=== PATIENT | male | born 1970 | race African-American/Black ===

== ENCOUNTER 2019-11-30 08:02 | Day surgery (SDC) | payer OTHER ==
--- OUTSIDE RECORDS SUMMARY | 2019-11-30 08:24 | XMS REPORT | Continuity of Care Document ---
:1970 Author Organization [facility] t Address [address] [place] [address] Care Team Providers Name Role Phone Unavailable Unavailable Unavailable Payers Payer Name Policy Type Policy Number Effective Date Expiration Date S ource Problems Condition Condition Condition Status Onset Resolution Last Treating Co mments Source Name Details Category Date Date Treatment Clinician Date Central Central Disease Active [facility] cord cord 8-03 [facility] Allergies, Adverse Reactions, Alerts Allergy Allergy Status Severity Reaction(s) Onset Inactive Treating Comm ents Source Name Type Date Date Clinician No Known DA Active [facility] 06[facility]02 [place] [facility] 00:00: [address] Family History Family Member Diagnosis Comments Start Date Stop Date Source Natural father Heart disease [facility] Natural mother Diabetes [facility] Natural mother Hypertension [facility] Natural sister Heart disease [facility] Social History Social Habit Start Date Stop Date Quantity Comments Source Sex Assigned At [facility] Cigarettes smoked 2015-10-15 2015-10-15 [facility] - current (pack per 00:00:00 00:00:00 [facility] Center day) - Reported Alcohol intake 2015-10-15 2015-10-[address] [facility] - 00:[facility]:00 00:00:00 non-drinker of Medical Ce nter alcohol (finding) Tobacco Comment 2015-09-18 2015-09-18 [facility]00 he is not ready Medical C enter to quit smoking. Smoking Status Start Date Stop Date Source Current every day smoker 2015-10-15 00:00:[address] [facility] Medications Ordered Filled Start Stop Current Ordering Indication Dosage Frequency Signature Comments Components Source Medication Medication Date Date Medication? Clinician (SIG) Name Name insulin Yes type 2 45U Q.5D Inject [address] detemir 8-11 diabetes Units [facility] - (LEVEMIR) 14:31: mellitus subcutaneo Medical 100 unit/mL 08 usly 2 Center injection (two) times daily. insulin Yes type [address] lispro 8-11 diabetes subcutaneo [facility]ingo es - (HUMALOG) 14:31: mellitus usly 3 Me dical 100 unit/mL 08 (three) Cente r injection times daily before meals. ascorbic Yes 500mg QD Take [address] Acid 8-11 capsule [facility] - (VITAMIN C) 00:00: (500 mg Med ical 500 mg CpER 00 total) by Bill ter SR capsule mouth daily. pantoprazol Yes 40mg QD Take [address] e 8-11 tablet (40 [facility] - (PROTONIX) 00:00: mg total) Me dical 40 MG 00 by mouth Center tablet daily. enoxaparin Yes 40mg Q24H Inject 0.[address] (LOVENOX) 8-11 mLs (40 mg Luke s - 40 mg/0.4 00:00: total) Medica l mL Syrg 00 subcutaneo Center usly daily. Procedures This patient has no known procedures. Results Test Description Test Time Test Comments Results Result Comments Source GLUCOSE BEDSIDE TESTING 2018-06-24 09:18:00 Test Item Value Reference Range Interpretation Comme nts GLUCOSE BEDSIDE TESTING (test code = GLUBED) 171 MG/DL 60-99 H GLUCOSE BEDSIDE [id number] 15:01:00 Test Item Value Reference Range Interpretation Comments GLUCOSE BEDSIDE TESTING (test code 170 MG/DL 60-99 H = GLUBED) GLUCOSE BEDSIDE [id number] 13:38:00 Test Item Value Reference Range Interpretation Comments GLUCOSE BEDSIDE TESTING (test code 185 MG/DL 60-99 H = GLUBED)
--- OUTSIDE RECORDS SUMMARY | 2019-11-30 08:24 | XMS REPORT | Clinical Summary ---
:[address] [facility] Address [address] [place] [address] Care Team Providers Name Role Phone Unavailable Primary Care Provider Unavailable Allergies No Known Allergies Medications Medication Sig Dispensed Refills Start Date End Date Status insulin detemir Inject 45 Units 0 Active (LEVEMIR) 100 subcutaneously 2 unit/mL (two) times daily. injectionIndication s: type 2 diabetes mellitus insulin lispro Inject 0 Activ e (HUMALOG) 100 subcutaneously 3 unit/mL (three) times daily injectionIndication before meals. s: type 2 diabetes mellitus ascorbic Acid Take 1 capsule (500 30 capsule 0 09/27/2015 Active (VITAMIN C) 500 mg mg total) by mouth CpER SR capsule daily. pantoprazole Take 1 tablet (40 mg 30 tablet 0 09/27/2015 Active (PROTONIX) 40 MG total) by mouth tablet daily. enoxaparin Inject 0.4 mLs (40 30 Syringe 0 09/27/2015 Active (LOVENOX) 40 mg/0.4 mg total) mL Syrg subcutaneously daily. Active Problems Problem Noted Date Central cord syndrome 09/19/2015 Family History Medical History Relation Name Comments Heart disease Father Diabetes Mother Hypertension Mother Heart disease Sister Relation Name Status Comments Father Mother Sister Social History Tobacco Use Types Packs/Day Years Used Date Current Every Day Smoker 1 Tobacco Cessation: Ready to Quit: No; Co unseling Given: Yes Comments: pt states that he is not ready to quit smoking. 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 Device Shelf Model / Identifier Expiration Serial / Date Lot Matrix Floseal Hemo W/O Ndl 10 [id number] - [id number] Cement/Fi N/A: Spine PAUL:BIOSCI 01/15/2017 [id number] / Implanted: Qty: 1 on 09/20/2015 by Alejandro Marx MD at [facility] ller/Adhe Cervical / sive [id number] Set Scr [id number] - [id number] Spine N/A: Spine MEDTRONIC:SPINA [id number] / Implanted: Qty: 8 on 09/20/2015 by Alejandro Marx MD at [facility] Cervical L BIOLOGICS / Scr Vertex 14mm [id number] - [id number] Spine N/A: Spine MEDTRONIC:SPI NA [id number] / Implanted: Qty: 8 on 09/20/2015 by Alejandro Marx MD at [facility] Cervical L BIOLOGICS / [place] Plus Dbm Paste N/A: Spine MEDTRONIC 2016 [id number] / Implanted: Qty: 1 on 09/20/2015 by Alejandro Marx MD at [facility] Cervical A24 [id number] / Description:[id number] Tyrrell Dbm Orthoblend N/A: Spine Cervical MEDTRONIC 03/25/2016 [id number] / Implanted: Qty: 1 on 09/20/2015 by Alejandro Marx MD at [facility] A27 [id number] / Description:[id number] Hector N/A: Spine Cervical MEDTRONIC [id number] / Implanted: Qty: 2 on 09/20/2015 by Alejandro Marx MD at [facility] / Results Not on fileafter 11/29/2018 Advance Directives For more information, please contact: [phone] Code Status Date Activated Date Inactivated Comments Full Code 09/19/2015 12:32 AM 09/27/2015 4:31 PM This code status was determined by: Patient
[2019-11-30] MEDS ORDERED: NA CHLORIDE 0.9% 1,000 ML ONE (08:44)
[2019-11-30] MEDS: CEFAZOLIN/SWI 1gm 1 GM/10 ML SYR ONE ×3 (09:03→09:55)
[2019-11-30] MEDS: BUPIVACA 0.25%/EPI 0.0005%/PF 30 ML VIAL ONE ×2 (09:24→10:00)
[2019-11-30] MEDS ORDERED: MIDAZOLAM HCL 2 MG/2 ML INJ ONE (09:34)
[2019-11-30] MEDS ORDERED: propofoL 200 MG/20 ML VIAL IV ONE (09:34)
[2019-11-30] MEDS ORDERED: FENTANYL CITR 100 MCG/2 ML ONE (09:34)
[2019-11-30] MEDS ORDERED: dexAMETHasone 10 MG/ML VIAL ONE (09:34)
[2019-11-30] MEDS ORDERED: LIDOCAINE 2% MPF 5 ML VIAL ONE (09:35)
--- NOTE | 2019-11-30 10:26 | P.OP ---
Preoperative diagnosis: Upper middle back infected sebacous cyst with abscess Postoperative diagnosis: Upper middle back infected sebacous cyst with abscess Primary procedure: Wide Local Excision of Upper Middle Back Cyst Anesthesia: GETA + Local Estimated blood loss: <5cc Specimen: Culture + debridement tissue Findings: Infected sebaceous cyst 10x 12 x 4 cm down to fascia Complications: None Transferred to: Recovery Room Condition: Good
[2019-11-30 10:55] VITALS: O2SAT 100
--- NOTE | 2019-11-30 11:04 | OP ---
Date of Procedure: 11/30/2019 Surgeon: Kasi Nguyen MD, Preoperative Diagnosis: Upper middle back infected sebaceous cyst with abscess. Postoperative Diagnosis: Upper middle back infected sebaceous cyst with abscess. Procedure Performed: Wide local excision of above upper middle back infected sebaceous cyst with abs cess. Anesthesia: General endotracheal plus local with 0.25% Marcaine with epinephrine. Estimated Blood Loss: Less 5 mL. Specimen: Cultures and debridement tissue sent. Findings: Infected sebaceous cyst approximately 10 x 12 x 4 cm down to fascia. Complications: None. Disposition: The patient transferred to recovery room in good condition. Procedure In Detail: After informed consent was obtained, the patient was brought to the operating r oom, prepped and draped in the usual sterile fashion. After adequate anesthesia was achieved, an ell iptical incision was made down through subcutaneous tissues using a 15 blade. Electrocautery was use d to dissect down circumferentially approximately 10 x 12 cm down to fascia to remove an infected kenneth aceous cyst with abscess. Cultures were performed at this time and the debridement tissue was sent o ff for pathologic examination. Hemostasis was achieved with electrocautery. The area was copiously irrigated multiple times and dried. No additional hemostatic maneuvers required and a sterile dressi ng was packed in, damp to dry into the back wound, and a sterile dressing was placed over top. The p atient tolerated the procedure well without any evidence of complication and transferred to PACU in g ood condition. All counts were correct at the end of the case. ANGLE/RADHA Voice ID: [id number] Report ID: [id number]
[2019-11-30] MEDS: MORPHINE 4 MG/ML SYR ONE ×2 (11:30→11:35)
[2019-11-30] MEDS ORDERED: ONDANSETRON 4 MG/2 ML VIAL ONE (11:44)
[2019-11-30] MEDS ORDERED: INSULIN -REGULAR HUMAN 50 UNIT/0.5 ML ML ONE (11:44)
[2019-11-30] MEDS ORDERED: CODEINE 30MG/APAP 300MG TAB ONE (12:38)
[2019-11-30 16:37] VITALS: BP 125/86; TEMP 97
== END 2019-11-30 12:37 | disposition home or self-care (01) ==
LOC: OR 08:02
PROVIDERS: ATTEND Surgery
PROC: 0JB70ZZ Excision of Back Subcutaneous Tissue and Fascia, Open Approach (ICD-10-PCS; principal; 2019-11-30 09:30)
DX: L72.0 Epidermal cyst (principal); L08.9 Local infection of the skin and subcutaneous tissue, unspecified; Z20.828 Contact with and (suspected) exposure to other viral communicable diseases
CPT/HCPCS: 87070; 87205; 82947 ×3; 88304; 87075; 11406; U0002; J2704; J2250; J3010; J1100; J0690; J7030; J2405; 88305

== ENCOUNTER 2020-03-22 10:01 | Day surgery (SDC) | payer OTHER ==
--- OUTSIDE RECORDS SUMMARY | 2020-03-22 10:28 | XMS REPORT | Clinical Summary ---
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 Device Shelf Model / Identifier Expiration Serial / Date Lot Matrix Floseal Hemo W/O Ndl 10 [id number] - [id number] Cement/Fi N/A: Spine PAUL:BIOSCI 01/15/2017 [id number] / Implanted: Qty: 1 on 09/20/2015 by Alejandro Marx MD at [facility] ller/Adhe Cervical / sive [id number] Set Scr [id number] [id number] - [id number] Spine N/A: Spine MEDTRONIC:SPINA [id number] / Implanted: Qty: 8 on 09/20/2015 by Alejandro Marx MD at [facility] Cervical L BIOLOGICS / Scr Vertex 14mm [id number] - [id number] Spine N/A: Spine MEDTRONIC:SPI NA [id number] / Implanted: Qty: 8 on 09/20/2015 by Alejandro Marx MD at [facility] Cervical L BIOLOGICS / [place] Plus Dbm Paste N/A: Spine MEDTRONIC 2016 [id number] / Implanted: Qty: 1 on 09/20/2015 by Alejandro Marx MD at [facility] Cervical A24 [id number] / Description:[id number] [place] Dbm Orthoblend N/A: Spine Cervical MEDTRONIC 03/25/2016 [id number] / Implanted: Qty: 1 on 09/20/2015 by Alejandro Marx MD at [facility] A27 [id number] / Description:[id number] Hector N/A: Spine Cervical MEDTRONIC [id number] / Implanted: Qty: 2 on 09/20/2015 by Alejandro Marx MD at [facility] / Results Not on fileafter 03/22/2019 Advance Directives For more information, please contact: [phone] Code Status Date Activated Date Inactivated Comments Full Code 09/19/2015 12:32 AM 09/27/2015 4:31 PM This code status was determined by: Patient
--- OUTSIDE RECORDS SUMMARY | 2020-03-22 10:28 | XMS REPORT | Continuity of Care Document ---
:1970 Author Organization [facility] t Address [address] [place] [address] Care Team Providers Name Role Phone Unavailable Unavailable Unavailable Payers Payer Name Policy Type Policy Number Effective Date Expiration Date S ource Problems Condition Condition Condition Status Onset Resolution Last Treating Co mments Source Name Details Category Date Date Treatment Clinician Date Central Central Disease Active [facility] cord cord 8-03 [facility] - syndrome [facility] Allergies, Adverse Reactions, Alerts Allergy Allergy Status Severity Reaction(s) Onset Inactive Treating Comm ents Source Name Type Date Date Clinician No Known DA Active [facility] All[facility]ie 06-02 [facility] 00:00: [address] Family History Family Member Diagnosis Comments Start Date Stop Date Source Natural father Heart disease [facility] Natural mother Diabetes [facility] Natural mother Hypertension [facility] Natural sister Heart disease [facility] Social History Social Habit Start Date Stop Date Quantity Comments Source Sex Assigned At [facility] Cigarettes smoked 2015-10-15 2015-10-15 [facility] - current (pack per 00:00:00 00:00:00 Medical Center day) - Reported Alcohol intake 2015-10-15 2015-10-[address] [facility] - 00:[facility]:00 00:00:00 non-drinker of Medical Ce nter alcohol (finding) Tobacco Comment 2015-09-18 2015-09-18 pt states that [facility] - 00:[facility]:00:00 he is not ready Medical C enter to quit smoking. Smoking Status Start Date Stop Date Source Current every day smoker 2015-10-15 00:00:00 [facility] Medications Ordered Filled Start Stop Current [...] GLUBED) 171 MG/DL 60-99 H GLUCOSE BEDSIDE [id number] 15:01:00 Test Item Value Reference Range Interpretation Comments GLUCOSE BEDSIDE TESTING (test code 170 MG/DL 60-99 H = GLUBED) GLUCOSE BEDSIDE [id number] 13:38:00 Test Item Value Reference Range Interpretation Comments GLUCOSE BEDSIDE TESTING (test code 185 MG/DL 60-99 H = GLUBED)
[2020-03-22] MEDS ORDERED: NA CHLORIDE 0.9% 1,000 ML ONE (11:04)
[2020-03-22] MEDS ORDERED: CEFAZOLIN/SWI 1gm 1 GM/10 ML SYR ONE (11:05)
[2020-03-22] MEDS ORDERED: MIDAZOLAM HCL 2 MG/2 ML INJ ONE (11:47)
[2020-03-22] MEDS ORDERED: KETOROLAC 30 MG/ML INJ ONE (11:47)
[2020-03-22] MEDS ORDERED: FENTANYL CITR 100 MCG/2 ML ONE (11:47)
[2020-03-22] MEDS ORDERED: dexAMETHasone 10 MG/ML VIAL ONE (11:47)
[2020-03-22] MEDS ORDERED: propofoL 200 MG/20 ML VIAL IV ONE (11:47)
[2020-03-22] MEDS ORDERED: LIDOCAINE 2% MPF 5 ML VIAL ONE (11:48)
[2020-03-22] MEDS ORDERED: ONDANSETRON 4 MG/2 ML VIAL ONE ×2 (11:48→13:53)
[2020-03-22] MEDS ORDERED: BUPIVACA 0.25%/EPI 0.0005% MDV 50 ML VIAL ONE (12:11)
--- NOTE | 2020-03-22 13:11 | P.OP ---
Preoperative diagnosis: RIGHT upper back infected sebacous cyst Postoperative diagnosis: RIGHT upper back infected sebacous cyst Primary procedure: Wide local excision of RIGHT upper back infected sebacous cyst Anesthesia: GETA + Local Estimated blood loss: <20cc Specimen: cultures + debridement tissue Findings: 12cm x10cm down to muscle Complications: None Transferred to: Recovery Room Condition: Good
[2020-03-22] MEDS: HYDROMORPHONE HCL 1 MG/ML INJ ONE ×2 (13:40→13:45)
[2020-03-22] MEDS ORDERED: HYDROCODONE/APAP 10/325 TAB ONE (14:26)
--- NOTE | 2020-03-22 15:16 | OP ---
Date of Procedure: 03/22/2020 Surgeon: Pete Nguyen MD, Preoperative Diagnosis: Right upper back infected sebaceous cyst. Postoperative Diagnosis: Right upper back infected sebaceous cyst. Procedure: Wide local excision of right upper back infected sebaceous cyst with abscess. Anesthesia: General endotracheal plus local with 0.25% Marcaine without epinephrine. Estimated Blood Loss: Less than 20 mL. Specimen: Cultures plus debridement tissue. Findings: A 12 cm x 10 cm down to muscle large multiloculated infected epidermal inclusion cyst with abscess. Complications: None. Disposition: Transferred to recovery room in good condition. Procedure In Detail: After informed consent was obtained, the patient was brought to the operating r oom, prepped and draped in the usual sterile fashion. After adequate anesthesia, a curvilinear incis ion was made circumferentially around the area of the right upper back for approximately 5 cm in the subcutaneous tissues. I dissected this down using electrocautery circumferentially around an area of infected epidermal inclusion material. Abscess material was encountered at this point. This was se nt off for aerobic and anaerobic speciation. I then circumferentially removed the entire capsule in its entirety and extended for approximately 12 cm x 10 cm down to the muscular layer of the upper rica k. I then sent the debridement tissue off for pathologic examination. The area was copiously irriga pete and hemostasis was achieved with electrocautery, and the area was irrigated once again and dried. At this point, damp to dry dressings were packed in the wound and a sterile dressing was placed ove r top. The patient tolerated the procedure well without any evidence of complication and transferred to PACU in good condition. All counts were correct at the end of the case. ANGLE/RADHA Voice ID: [id number] Report ID: [id number]
[2020-03-22 16:24] VITALS: TEMP 97.9; O2SAT 95
[2020-03-22 16:25] VITALS: BP 142/64
== END 2020-03-22 15:30 | disposition home or self-care (01) ==
LOC: OR 10:01
PROVIDERS: ATTEND Surgery
PROC: 0JB70ZZ Excision of Back Subcutaneous Tissue and Fascia, Open Approach (ICD-10-PCS; principal; 2020-03-22 12:30)
DX: R22.2 Localized swelling, mass and lump, trunk (principal)
CPT/HCPCS: 87070; 87205; 82947; 88304; 87075; 87077; 87186; 11406; J2704; J2250; J3010; J1170; J0690; J7030; J2405 ×2; J1100

== ENCOUNTER 2020-08-10 12:20 | Emergency (ER) | payer OTHER ==
--- OUTSIDE RECORDS SUMMARY | 2020-08-10 12:22 | XMS REPORT | Continuity of Care Document ---
:1970 Author Organization [facility] t Address [address] [place] [address] Care Team Providers Name Role Phone Unavailable Unavailable Unavailable Payers Payer Name Policy Type Policy Number Effective Date Expiration Date S ource Problems Condition Condition Condition Status Onset Resolution Last Treating Co mments Source Name Details Category Date Date Treatment Clinician Date Central Central Disease Active [facility] cord cord 8-03 [facility] - syndrome syndrome [facility] Allergies, Adverse Reactions, Alerts Allergy Allergy Status Severity Reaction(s) Onset Inactive Treating Comm ents Source Name Type Date Date Clinician No Known DA Active U [facility] All[facility]ie 06-02 [facility] 00:00: [address] Family History Family Member Diagnosis Comments Start Date Stop Date Source Natural father Heart disease [facility] Natural mother Diabetes [facility] Natural mother Hypertension [facility] Natural sister Heart disease [facility] Social History Social Habit Start Date Stop Date Quantity Comments Source Sex Assigned At [facility] Cigarettes smoked 2015-10-15 2015-10-15 [facility] - current (pack per 00:00:00 00:00:00 [...] Source Current every day smoker 2015-10-15 00:00:[address] [facility] Medications Ordered [...] GLUBED) 171 MG/DL 60-99 H GLUCOSE BEDSIDE [id number] 15:01:00 Test Item Value Reference Range Interpretation Comments GLUCOSE BEDSIDE TESTING (test code 170 MG/DL 60-99 H = GLUBED) GLUCOSE BEDSIDE [id number] 13:38:00 Test Item Value Reference Range Interpretation Comments GLUCOSE BEDSIDE TESTING (test code 185 MG/DL 60-99 H = GLUBED)
[2020-08-10 14:37] LABS: Absolute Lymphocytes (CBC) 2.2 K/uL (0.7-4.9); Basophils % 1.3 % (0-1.3); Hematocrit 46.2 % (39.6-49.0); Lymphocytes % 34.6 % (15.3-44.8); MPV 9.5 fL (7.6-11.3); RBC Red Blood Cell Count 5.08 M/uL (4.33-5.43)
[2020-08-10 15:14] LABS: ALT/SGPT 15 U/L (12-78); AST/SGOT 9 U/L (15-37); Albumin 2.7 g/dL (3.4-5.0); Alkaline Phosphatase 144 U/L (45-117); BUN Blood Urea Nitrogen 9 mg/dL (7-18); Bicarbonate 31 mmol/L (21-32); Bilirubin Total 0.4 mg/dL (0.2-1.0); Glucose Level 361 mg/dL (74-106); Potassium 3.8 mmol/L (3.5-5.1); Protein, Total 6.6 g/dL (6.4-8.2); Sodium Level 139 mmol/L (136-145)
--- NOTE | 2020-08-10 16:03 | RAD REPORT ---
EXAM DESCRIPTION: RAD - Foot Left 3 View - 08/10/2020 2:55 pm CLINICAL HISTORY: SWELLING Pain and swelling left foot. COMPARISON: No comparisons FINDINGS: Soft tissue ulceration is seen along the plantar aspect of the forefoot medially. No fract ure or dislocation seen. No radiographic evidence of osteomyelitis. If osteomyelitis remains a clinic al concern, MRI of the foot would be recommended for followup.
--- NOTE | 2020-08-10 16:40 | EDPHYS ---
Physician Documentation [facility] Name: Jonnie De La Rosa Age: 50 yrs Sex: Male : 1970 Arrival Date: 08/10/2020 Time: 12:33 Bed 20 Private MD: Yomi Garcia E ED Physician Andry Silva HPI: 08/10 14:06 This 50 yrs old Black Male presents to ER via Wheelchair with complaints of Foot Pain - jmm swelling/infection. 14:06 The patient presents with swelling. The complaints affect the. Onset: The jmm symptoms/episode began/occurred at an unknown time. Modifying factors: The symptoms are alleviated by nothing. the symptoms are aggravated by nothing. Associated signs and symptoms: Pertinent positives: swelling, draining. The patient has not experienced similar symptoms in the past. This is a 50 year old male with a history of htn, dm, that presents to the ED with complaints of left plantar foot swelling, drainage. Sent from clinic for evaluation. Denies fever, pain. . Historical: - Home Meds: 13:05 levemir 40 units BID 40 40 unit twice a day [Active]; atorvastatin 20 mg oral tab 1 tab kg once daily [Active]; metoprolol tartrate 37.5 mg Oral tab 1 tab once daily [Active]; gabapentin 800 mg oral tab 1 tab 4 times a day [Active]; amitriptyline Oral once daily [Active]; - PMHx: 13:05 neuropathy; Hypertension; Diabetes - IDDM; back sx, fx vertebre; kg - PSHx: 13:05 Cervical back sx 3,4,\T\5; kg - Immunization history:: Adult Immunizations up to date, Client reports having NOT received the Covid vaccine. - Social history:: Smoking status: Patient reports the use of cigarette tobacco products, smokes one pack cigarettes per day. ROS: 14:06 Constitutional: Negative for fever, chills, and weight loss, Cardiovascular: Negative jmm for chest pain, palpitations, and edema, Respiratory: Negative for shortness of breath, cough, wheezing, and pleuritic chest pain. 14:06 MS/extremity: Positive for swelling. 14:06 All other systems are negative. Exam: 14:06 Constitutional: This is a well developed, well nourished patient who is awake, alert, jmm and in no acute distress. Head/Face: atraumatic. Eyes: EOMI, no conjunctival erythema appreciated ENT: Moist Mucus Membranes Neck: Trachea midline, Supple Chest/axilla: Normal chest wall appearance and motion. Cardiovascular: Regular rate and rhythm. No edema appreciated Respiratory: Normal respirations, no respiratory distress appreciated Abdomen/GI: Non distended, soft Back: Normal ROM 14:06 Skin: ulcer noted to the ball of the left foot, no purulent drainage appreciated, mild erythema surrounding the wound. 14:06 Neuro: Orientation: is normal, Mentation: is normal, Memory: is normal. 14:06 Psych: Behavior/mood is pleasant, cooperative. Vital Signs: 12:50 BP 139 / 75; Pulse 87; Resp 20; Temp 98.6(O); Pulse Ox 98% on R/A; Weight 86.18 kg (R); kg Height 6 ft. 0 in. (182.88 cm) (R); Pain 9/10; 15:56 BP 137 / 92; Pulse 76; Resp 16; Pulse Ox 97% on R/A; zb 12:50 Body Mass Index 25.77 (86.18 kg, 182.88 cm) kg MDM: 13:55 Patient medically screened. dedra 16:29 Data reviewed: vital signs, nurses notes. Counseling: I had a detailed discussion with evan the patient and/or guardian regarding: the historical points, exam findings, and any diagnostic results supporting the discharge/admit diagnosis, lab results, radiology results, the need for outpatient follow up, to return to the emergency department if symptoms worsen or persist or if there are any questions or concerns that arise at home. ED course: Imaging studies labs, wnl. Patient advised to follow up with podiatry for further evaluation. patient is otherwise given strict return precautions. Patient understood and agrees with the plan of care. . 08/10 14: Order name: CBC with Diff; Complete Time: 14:49 [facility] 08/10 14: Order name: CMP; Complete Time: 15:30 [facility] 08/10 14:06 Order name: Foot Left 3 View XRAY; Complete Time: 16:04 [facility] 08/10 14:06 Order name: Procalcitonin; Complete Time: 15:30 [facility] 08/10 14:06 Order name: Lactate; Complete Time: 15:04 [facility] 08/10 14:06 Order name: Blood Culture Adult (2) [facility] 08/10 14:06 Order name: Saline Lock; Complete Time: 14:28 [facility] 08/10 16:18 Order name: Wound Care; Complete Time: 17:02 [facility] Administered Medications: No medications were administered Disposition: 08/10/20 16:40 Discharged to Home. Impression: Left Foot Ulcer. - Condition is Stable. - Discharge Instructions: Diabetes and Foot Care. - Prescriptions for Doxycycline Hyclate 100 mg Oral Tablet - take 1 tablet by ORAL route every 12 hours; 20 tablet. Bactrim DS 800- 160 mg Oral Tablet - take 1 tablet by ORAL route every 12 hours for 10 days; 20 tablet. - Medication Reconciliation Form, Thank You Letter, Antibiotic Education, Prescription Opioid Use form. - Follow up: Luis Fernando Gamboa DPM; When: 1 - 2 days; Reason: Recheck today's complaints, Continuance of care, Re-evaluation by your physician. Addendum: 08/11/2020 21:09 Co-signature as Attending Physician, Andry Silva MD I agree with the assessment and c hill plan of care. Signatures: Dispatcher [employer] EDAndry Ortiz MD MD cha Mickail, Joel, PA PA jmm Brown, Zipporah RN RN Maru Carver, BRY RN kg Corrections: (The following items were deleted from the chart) 08/10 17:03 16:40 08/10/2020 16:40 Discharged to Home. Impression: Left Foot Ulcer. Condition is zb Stable. Forms are Medication Reconciliation Form, Thank You Letter, Antibiotic Education, Prescription Opioid Use. Follow up: Dr. Luis Fernando Gmaboa; When: 1 - 2 days; Reason: Recheck today's complaints, Continuance of care, Re-evaluation by your physician. [facility]
--- NOTE | 2020-08-10 16:40 | ER ---
Nurse's Notes [facility] Name: Jonnie De La Rosa Age: 50 yrs Sex: Male : 1970 Arrival Date: 08/10/2020 Time: 12:33 Bed 20 Private MD: Yomi Garcia E Diagnosis: Left Foot Ulcer Presentation: 08/10 12:50 Chief complaint: Patient states: Wound on bottom of left foot that has been there since kg before July 03 unsure of date. Sent over by Dr. Smith. Coronavirus screen: Client denies travel out of the [place] in the last 14 days. At this time, unable to obtain information related to travel outside the [place] At this time, the client does not indicate any symptoms associated with coronavirus-19. Ebola Screen: Patient negative for fever greater than or equal to 101.5 degrees Fahrenheit, and additional compatible Ebola Virus Disease symptoms Patient denies exposure to infectious person. Patient denies travel to an Ebola-affected area in the 21 days before illness onset. Initial Sepsis Screen: Does the patient meet any 2 criteria? No. Patient's initial sepsis screen is negative. Does the patient have a suspected source of infection? Yes: Skin breakdown/wound. Risk Assessment: Do you want to hurt yourself or someone else? Patient reports no desire to harm self or others. Onset of symptoms is unknown. 12:50 Method Of Arrival: Wheelchair kg 12:50 Acuity: BAO 3 kg Triage Assessment: 13:06 General: Appears in no apparent distress. Pain: Complains of pain in scalp. kg Historical: - Home Meds: 13:05 levemir 40 units BID 40 40 unit twice a day [Active]; atorvastatin 20 mg oral tab 1 tab kg once daily [Active]; metoprolol tartrate 37.5 mg Oral tab 1 tab once daily [Active]; gabapentin 800 mg oral tab 1 tab 4 times a day [Active]; amitriptyline Oral once daily [Active]; - PMHx: 13:05 neuropathy; Hypertension; Diabetes - IDDM; back sx, fx vertebre; kg - PSHx: 13:05 Cervical back sx 3,4,\T\5; kg - Immunization history:: Adult Immunizations up to date, Client reports having NOT received the Covid vaccine. - Social history:: Smoking status: Patient reports the use of cigarette tobacco products, smokes one pack cigarettes per day. Screenin:05 Abuse screen: Denies threats or abuse. Denies injuries from another. Nutritional kg screening: No deficits noted. Tuberculosis screening: No symptoms or risk factors identified. Fall Risk Fall in past 12 months (25 points). Secondary diagnosis (15 points) impaired mobility, IV access (20 points). Ambulatory Aid- Crutches/Cane/Walker (15 pts). Gait- Impaired (20 pts.). Mental Status- Oriented to own ability (0 pts). Total Austin Fall Scale indicates Low Risk Score (25-44 pts). Fall prevention measures have been instituted. Side Rails Up X 2 Placed close to Nursing Station Frequent Obs/Assesments occuring Family Present and informed to notify staff if they need to leave bedside As available Patient and Family Educated on Fall Prevention Program and strategies. Assessment: 15:00 General: Appears in no apparent distress. Behavior is cooperative. Pain: Complains of zb pain in left foot Pain currently is 0 out of 10 on a pain scale. Quality of pain is described as numb. Neuro: Level of Consciousness is awake, alert, obeys commands, Oriented to person, place, time, situation. Cardiovascular: Patient's skin is warm and dry. Respiratory: Airway is patent. GI: Abdomen is flat. Derm: Skin temperature is warm Abscess located on left foot is quarter sized. Derm: Wound noted ball of left foot Wound is dry, no odors, wound. Musculoskeletal: Capillary refill is > 3 seconds, is sluggish, in left toes. Range of motion: intact in all extremities, Swelling present in left foot, right leg and left leg Reports numbness in right foot and left foot. Injury Description: Puncture sustained to ball of left foot is gaping, was sustained july 03 patient was told he had a wound on foot. 16:00 Reassessment: Patient appears in no apparent distress at this time. Patient and/or zb family updated on plan of care and expected duration. Pain level reassessed. Patient is alert, oriented x 3, equal unlabored respirations, skin warm/dry/pink. 17:02 Reassessment: Patient appears in no apparent distress at this time. Patient and/or zb family updated on plan of care and expected duration. Pain level reassessed. Patient is alert, oriented x 3, equal unlabored respirations, skin warm/dry/pink. patient stated he wanted to do the wound care himself. patient educated how to dress wound. Vital Signs: 12:50 BP 139 / 75; Pulse 87; Resp 20; Temp 98.6(O); Pulse Ox 98% on R/A; Weight 86.18 kg (R); kg Height 6 ft. 0 in. (182.88 cm) (R); Pain 9/10; 15:56 BP 137 / 92; Pulse 76; Resp 16; Pulse Ox 97% on R/A; zb 12:50 Body Mass Index 25.77 (86.18 kg, 182.88 cm) kg ED Course: 12:33 Patient arrived in ED. am2 12:34 Yomi Garcia MD is Private Physician. am2 12:56 Triage completed. kg 13:06 Arm band placed on right wrist. kg 13:06 Patient has correct armband on for positive identification. kg 13:55 Amadeo Ozuna PA is PHCP. jmm 13:55 Andry Silva MD is Attending Physician. jmm 14:20 Initial lab(s) drawn, by me, sent to lab. First set of blood cultures drawn by me. em1 Inserted saline lock: 20 gauge in right forearm, using aseptic technique. Blood collected. 14:28 Lactate Sent. em1 14:28 Procalcitonin Sent. em1 14:28 CBC with Diff Sent. em1 14:28 CMP Sent. em1 14:55 Foot Left 3 View XRAY In Process Unspecified. EDMS 15:47 Luis Fernando Diaz, RN is Primary Nurse. bp 15:57 Jade Cunningham, BRY is Primary Nurse. zb 16:31 Luis Fernando Gamboa DPM is Referral Physician. jmm 17:02 No provider procedures requiring assistance completed. IV discontinued, intact, zb bleeding controlled, No redness/swelling at site. Pressure dressing applied. Administered Medications: No medications were administered Outcome: 16:40 Discharge ordered by . jmm 17:03 Discharged to home ambulatory, via wheelchair. zb 17:03 Condition: stable 17:03 Discharge instructions given to patient, Instructed on discharge instructions, follow up and referral plans. Demonstrated understanding of instructions, follow-up care, medications, Prescriptions given X 2. 17:03 Patient left the ED. zb Signatures: Dispatcher [employer] EDMS Amadeo Ozuna PA PA jmm Martinez, Eric em1 Cass Awan am2 Luis Fernando Diaz, RN RN Jade Arroyo RN RN Maru Carver RN RN kg
[2020-08-10 17:20] VITALS: TEMP 98.6
[2020-08-10 17:28] VITALS: BP 137/92; O2SAT 97
== END 2020-08-10 17:03 | disposition home or self-care (01) ==
LOC: ER 12:20
DX: E11.621 Type 2 diabetes mellitus with foot ulcer (principal); L97.529 Non-pressure chronic ulcer of other part of left foot with unspecified severity; Z79.4 Long term (current) use of insulin; I10 Essential (primary) hypertension; F17.210 Nicotine dependence, cigarettes, uncomplicated
CPT/HCPCS: 36415; 80053; 83605; 84145; 85025; 87040

== ENCOUNTER 2022-06-20 12:26 | Emergency (ER) | payer OTHER ==
--- OUTSIDE RECORDS SUMMARY | 2022-06-20 12:28 | XMS REPORT | Continuity of Care Document ---
:1970 Author Organization [facility] t Address [address] [place] [address] Care Team Providers Name Role Phone Asked, No Pcp Primary Care Physician Unavailable Payers Payer Name Policy Type Policy Number Effective Date Expiration Date S ource Problems Condition Condition Condition Status Onset Resolution Last Treating Co mments Source Name Details Category Date Date Treatment Clinician Date Central Central Disease Active [facility] Allergies, Adverse Reactions, Alerts Allergy Allergy Status Severity Reaction(s) Onset Inactive Treating Comm ents Source Name Type Date Date Clinician No Known DA Active [facility] 00:00: [address] NO KNOWN Allergy Active [facility] Family History Family Member Diagnosis Comments Start Date Stop Date Source Natural mother Diabetes [facility] Natural mother Hypertension [facility] Natural sister Heart disease [facility] Natural father Heart disease [facility] Social History Social Habit Start Date Stop Date Quantity Comments Source Gender identity [facility] History of tobacco Cigarette Smoker [facility] use [facility] Alcohol intake 2022-05-18 2022-05-[address] [facility] 00:00:00 00:00:00 non-drinker of Medical Ce nter alcohol (finding) History of Social 2021-02-25 2021-02-[address] function 00:00:00 00:00:00 Hospital Cigarettes smoked 2015-09-18 2015-09-18 [facility] current (pack per 00:00:00 00:00:00 [facility] Center day) - Reported Tobacco Comment 2015-09-18 2015-09-18 pt states that [facility] 00:00:00 00:00:00 he is not ready Medical C enter to quit smoking. Sex [facility] [birth year] [facility] Smoking Status Start Date Stop Date Source Tobacco smoking consumption Meth [facility] unknown Smokes tobacco daily 2015-09-18 00:00:00 [facility] Medications Ordered Filled Start Stop Current Ordering Indication Dosage Frequency Signature Comments Components Source Medication Medication Date Date Medication? Clinician (SIG) Name Name insulin Yes type 2 45U Q.5D Inject [address] detemir 8-11 diabetes Units [facility] (LEVEMIR) 14:31: mellitus subcutaneo Medical 100 unit/mL 08 usly 2 Center injection (two) times daily. insulin Yes type [address] lispro 8-11 diabetes subcutaneo [facility] (HUMALOG) 14:31: mellitus usly 3 Me dical 100 unit/mL 08 (three) Cente r injection times daily before meals. insulin 2015- Yes type 2 45U Q.5D Inject [address] detemir 8-11 diabetes Units [facility] (LEVEMIR) 14:31: mellitus subcutaneo Medical 100 unit/mL 08 usly 2 Center injection (two) times daily. insulin 2016- Yes type [address] lispro 8-11 diabetes subcutaneo Domingo es (HUMALOG) 14:31: mellitus usly 3 Me dical 100 unit/mL 08 (three) Cente r injection times daily before meals. pantoprazol Yes 40mg QD Take [address] e 8-11 tablet (40 [facility] (PROTONIX) 00:00: mg total) Me dical 40 MG 00 by mouth Center tablet daily. enoxaparin 2016-0 Yes 40mg Q24H Inject 0.[address] (LOVENOX) 8-11 mLs (40 mg Luke s 40 mg/0.4 00:00: total) Medica l mL Syrg 00 subcutaneo Center usly daily. ascorbic 2016-0 Yes 500mg QD Take [address] [facility] Acid 8-11 capsule [facility] (VITAMIN C) 00:00: (500 mg Med ical 500 mg CpER 00 total) by Bill ter SR capsule mouth daily. pantoprazol 2016-0 Yes 40mg QD Take [address] e 8-11 tablet (40 [facility] (PROTONIX) 00:00: mg total) Me dical 40 MG 00 by mouth Center tablet daily. enoxaparin 2016-0 Yes 40mg Q24H Inject 0.[address] (LOVENOX) 8-11 mLs (40 mg Luke s 40 mg/0.4 00:00: total) Medica l mL Syrg 00 subcutaneo Center usly daily. ascorbic 2016-0 Yes 500mg QD Take [address] Acid 8-11 capsule [facility] (VITAMIN C) 00:00: (500 mg Med ical 500 mg CpER 00 total) by Bill ter SR capsule mouth daily. Procedures This patient has no known procedures. Encounters Start End Encounter Admission Attending Care Care Encounter Source Date/Time Date/Time Type Type Clinicians Facility Department ID 2021-02-25 2021-02-25 Emergency [facility] Tami [id number] [address] [place] [address] 00:00:00 00:00:[address] Results Test Description Test Time Test Comments Results Result Comments Source GLUCOSE BEDSIDE TESTING 2018-06-24 09:18:00 Test Item Value Reference Range Interpretation Comme nts GLUCOSE BEDSIDE TESTING (test code = GLUBED) 171 MG/DL 60-99 H GLUCOSE BEDSIDE [id number] 15:01:00 Test Item Value Reference Range Interpretation Comments GLUCOSE BEDSIDE TESTING (test code 170 MG/DL 60-99 H = GLUBED) GLUCOSE BEDSIDE [id number] 13:38:00 Test Item Value Reference Range Interpretation Comments GLUCOSE BEDSIDE TESTING (test code 185 MG/DL 60-99 H = GLUBED)
--- NOTE | 2022-06-20 13:24 | RAD REPORT ---
EXAM DESCRIPTION: RAD - Chest Single View - 06/20/2022 1:16 pm CLINICAL HISTORY: CHEST PAIN COMPARISON: Chest Single View dated 04/24/2018; Chest Single View dated 09/17/2015; CHEST PA AND LAT 2 V IEW dated 07/26/2011 FINDINGS: Lines: None. Lungs: Diffuse prominence of the pulmonary interstitium. Pleural: Left pleural effusion that is small. A small right effusion difficult to exclude . Cardiac: Cardiomegaly. Mediastinum: Within normal limits. Bones: No acute fractures. Other: None IMPRESSION: Findings consistent with the interval development of pulmonary edema.
[2022-06-20] MEDS ORDERED: MORPHINE 4 MG/ML SYR ONE (14:08)
[2022-06-20] MEDS ORDERED: ONDANSETRON 4 MG/2 ML VIAL ONE (14:08)
[2022-06-20 14:17] LABS: Absolute Lymphocytes (CBC) 1.3 K/uL (0.7-4.9); Hematocrit 36.6 % (39.6-49.0); Lymphocytes % 19.9 % (15.3-44.8); MCV 87.9 fL (80-100); MPV 8.5 fL (7.6-11.3); RBC Red Blood Cell Count 4.17 M/uL (4.33-5.43)
[2022-06-20 15:31] LABS: Protime INR 1.26
[2022-06-20 15:44] LABS: ALT/SGPT < 10 U/L (16-61); AST/SGOT 11 U/L (15-37); Albumin 1.9 g/dL (3.4-5.0); Alkaline Phosphatase 72 U/L (45-117); BUN Blood Urea Nitrogen 15 mg/dL (7-18); Bicarbonate 29 mEq/L (21-32); Bilirubin Direct 0.1 mg/dL (0-0.2); Bilirubin Total 0.3 mg/dL (0.2-1.0); Glomerular Filtration Rate 122 ml/min (=/>90); Glucose Level 87 mg/dL (74-106); Lipase 7 U/L (13-75); Magnesium 1.9 mg/dL (1.6-2.4); NT PRO-BNP 6789 pg/mL (<125); Potassium 3.4 mEq/L (3.5-5.1); Protein, Total 5.6 g/dL (6.4-8.2); Sodium Level 135 mEq/L (136-145); Troponin High Sensitivity 40.4 pg/mL (<58.9)
--- NOTE | 2022-06-20 16:22 | ER ---
Nurse's Notes [facility] Name: Jonnie De La Rosa Age: 52 yrs Sex: Male : 1970 Arrival Date: 06/20/2022 Time: 12:26 Bed 7 Private MD: Diagnosis: Hypoglycemia, unspecified;Adverse effect of insulin and oral hypoglycemic [antidiabetic] drugs;Unspecified combined systolic (congestive) and diastolic (congestive) heart failure;Hypokalemia Presentation: 06/20 12:32 Chief complaint: EMS states: BGL 34, improved to 132 after glucagon and D10 250mls to hb 20g RAC. Coronavirus screen: At this time, the client does not indicate any symptoms associated with coronavirus-19. Ebola Screen: No symptoms or risks identified at this time. Initial Sepsis Screen: Does the patient meet any 2 criteria? No. Patient's initial sepsis screen is negative. Does the patient have a suspected source of infection? No. Patient's initial sepsis screen is negative. Risk Assessment: Do you want to hurt yourself or someone else? Patient reports no desire to harm self or others. Onset of symptoms was June 20, 2022. 12:32 Method Of Arrival: EMS: [facility] hb 12:32 Acuity: BAO 2 hb Historical: - Allergies: 12:33 shellfish derived; hb - Home Meds: 12:33 Amitriptyline Oral once daily [Active]; atorvastatin 20 mg Oral tab 1 tab once daily hb [Active]; gabapentin 800 mg Oral tab 1 tab 4 times a day [Active]; levemir 40 units BID 40 40 unit twice a day [Active]; metoprolol tartrate 37.5 mg Oral tab 1 tab once daily [Active]; - PMHx: 12:33 back sx, fx vertebre; Diabetes - IDDM; Hypertension; neuropathy; hb - Immunization history:: Adult Immunizations up to date. - Social history:: Smoking status: . - Family history:: not pertinent. Screenin:34 [facility] ED Fall Risk Assessment (Adult) Score/Fall Risk Level 3 or more points = High hb Risk Oriented to surroundings, Maintained a safe environment, Educated pt \T\ family on fall prevention, incl call for assistance when getting out of bed. Abuse screen: Denies threats or abuse. Denies injuries from another. Nutritional screening: No deficits noted. Tuberculosis screening: No symptoms or risk factors identified. Assessment: 12:55 General: Appears in no apparent distress. Behavior is calm, cooperative. Pain: Pain hb currently is 8 out of 10 on a pain scale. Neuro: Level of Consciousness is obeys commands, lethargic, Oriented to person, place, time, situation. 12:55 Cardiovascular: Patient's skin is warm and dry. Respiratory: Respiratory effort is hb even, unlabored, Respiratory pattern is regular, symmetrical. GI: No signs and/or symptoms were reported involving the gastrointestinal system. : No signs and/or symptoms were reported regarding the genitourinary system. EENT: No signs and/or symptoms were reported regarding the EENT system. Derm: Skin is pink, warm \T\ dry. Musculoskeletal: Reports chronic pain in extremities and back. 13:45 Reassessment: Patient appears in no apparent distress at this time. No changes from hb previously documented assessment. Patient and/or family updated on plan of care and expected duration. Pain level reassessed. 14:58 Reassessment: Patient appears in no apparent distress at this time. No changes from hb previously documented assessment. Patient and/or family updated on plan of care and expected duration. Pain level reassessed. 17:02 Reassessment: PT DC HOME VIA EMS. bp Vital Signs: 12:32 BP 170 / 98; Pulse 64; Resp 15; Temp 97.7; Pulse Ox 100% on R/A; Weight 124.74 kg; hb Height 6 ft. 0 in. ; Pain 8/10; 14:08 BP 173 / 95; Pulse 63; Resp 14; Pulse Ox 99% on R/A; Pain 8/10; hb 14:58 BP 158 / 96; Pulse 62; Resp 15; Pulse Ox 99% on R/A; hb 17:00 BP 160 / 98; Pulse 62; Resp 15; Pulse Ox 100% ; bp 12:32 Body Mass Index 37.30 (124.74 kg, 182.88 cm) hb 12:32 Pain Scale: Adult hb 14:08 Pain Scale: Adult hb ED Course: 12:28 Patient arrived in ED. hb 12:28 Andry Silva MD is Attending Physician. dedra 12:33 Triage completed. hb 12:34 Arm band placed on. hb 13:18 XRAY Chest (1 view) In Process Unspecified. EDMS 13:34 Inserted saline lock: 24 gauge in right hand, using aseptic technique. Blood collected. bp 14:06 Ena Lou, RN is Primary Nurse. hb 14:09 Patient has correct armband on for positive identification. hb 16:21 Gonzalez Morse MD is Referral Physician. dedra 16:21 Mirza Green MD is Referral Physician. dedra 17:00 No provider procedures requiring assistance completed. IV discontinued, intact, bp bleeding controlled, No redness/swelling at site. Pressure dressing applied. Administered Medications: 14:07 Drug: morphine IVP or IV 4 mg Route: IVP; Infused Over: 4 mins; Site: right hand; hb 15:00 Follow up: Response: No adverse reaction hb 14:07 Drug: Ondansetron IVP 4 mg Route: IVP; Site: right hand; hb 15:00 Follow up: Response: No adverse reaction hb 16:30 Drug: Potassium PO Effervescent Tablet 50 mEq Route: PO; bp 17:04 Follow up: Response: No adverse reaction bp 16:30 Drug: Furosemide IVP 40 mg Route: IVP; Site: right forearm; bp 17:04 Follow up: Response: No adverse reaction bp Medication: 14:09 VIS not applicable for this client. hb Point of Care Testing: Blood Glucose: 12:35 Blood Glucose: 108 mg/dL; hb Ranges: Outcome: 16:21 Discharge ordered by . dedra 17:00 Discharged to home via ambulance, with family. bp 17:00 Condition: stable 17:00 Discharge instructions given to patient, family, Instructed on discharge instructions, follow up and referral plans. Demonstrated understanding of instructions, follow-up care. 17:04 Patient left the ED. bp Signatures: Dispatcher [employer] Andry Ochoa MD MD cha Baxter, Heather, RN RN Luis Fernando Trevino RN RN bp Corrections: (The following items were deleted from the chart) 12:34 12:32 Acuity: BAO 3 hb hb
--- NOTE | 2022-06-20 16:22 | EDPHYS ---
Physician Documentation [facility] Name: Jonnie De La Rosa Age: 52 yrs Sex: Male : 1970 Arrival Date: 06/20/2022 Time: 12:26 Bed 7 Private MD: ED Physician Andry Silva HPI: 06/20 12:52 This 52 yrs old Black Male presents to ER via EMS with complaints of Low Blood Sugar. dedra 12:52 The patient or guardian reports hypoglycemia, that was potentially precipitated by not dedra eating. Onset: The symptoms/episode began/occurred just prior to arrival. Associated signs and symptoms: Pertinent positives: ams. Current symptoms: In the emergency department the patient's symptoms have improved, mildly. The patient has experienced similar episodes in the past, several times. Historical: - Allergies: 12:33 shellfish derived; hb - Home Meds: 12:33 Amitriptyline Oral once daily [Active]; atorvastatin 20 mg Oral tab 1 tab once daily hb [Active]; gabapentin 800 mg Oral tab 1 tab 4 times a day [Active]; levemir 40 units BID 40 40 unit twice a day [Active]; metoprolol tartrate 37.5 mg Oral tab 1 tab once daily [Active]; - PMHx: 12:33 back sx, fx vertebre; Diabetes - IDDM; Hypertension; neuropathy; hb - Immunization history:: Adult Immunizations up to date. - Social history:: Smoking status: . - Family history:: not pertinent. ROS: 12:52 Constitutional: Negative for fever, chills, and weight loss, Eyes: Negative for injury, dedra pain, redness, and discharge, ENT: Negative for injury, pain, and discharge, Neck: Negative for injury, pain, and swelling, Cardiovascular: Negative for chest pain, palpitations, and edema, Respiratory: Negative for shortness of breath, cough, wheezing, and pleuritic chest pain, Abdomen/GI: Negative for abdominal pain, nausea, vomiting, diarrhea, and constipation, Back: Negative for injury and pain, : Negative for injury, bleeding, discharge, and swelling, MS/Extremity: Negative for injury and deformity, Skin: Negative for injury, rash, and discoloration, Psych: Negative for depression, anxiety, suicide ideation, homicidal ideation, and hallucinations, Allergy/Immunology: Negative for hives, rash, and allergies, Endocrine: Negative for neck swelling, polydipsia, polyuria, polyphagia, and marked weight changes, Hematologic/Lymphatic: Negative for swollen nodes, abnormal bleeding, and unusual bruising. 12:52 Neuro: Positive for altered mental status. Exam: 12:52 Constitutional: This is a well developed, well nourished patient who is awake, alert, dedra and in no acute distress. Head/Face: Normocephalic, atraumatic. Eyes: Pupils equal round and reactive to light, extra-ocular motions intact. Lids and lashes normal. Conjunctiva and sclera are non-icteric and not injected. Cornea within normal limits. Periorbital areas with no swelling, redness, or edema. ENT: Nares patent. No nasal discharge, no septal abnormalities noted. Tympanic membranes are normal and external auditory canals are clear. Oropharynx with no redness, swelling, or masses, exudates, or evidence of obstruction, uvula midline. Mucous membranes moist. Neck: Trachea midline, no thyromegaly or masses palpated, and no cervical lymphadenopathy. Supple, full range of motion without nuchal rigidity, or vertebral point tenderness. No Meningismus. Chest/axilla: Normal chest wall appearance and motion. Nontender with no deformity. No lesions are appreciated. Cardiovascular: Regular rate and rhythm with a normal S1 and S2. No gallops, murmurs, or rubs. Normal PMI, no JVD. No pulse deficits. Respiratory: Lungs have equal breath sounds bilaterally, clear to auscultation and percussion. No rales, rhonchi or wheezes noted. No increased work of breathing, no retractions or nasal flaring. Abdomen/GI: Soft, non-tender, with normal bowel sounds. No distension or tympany. No guarding or rebound. No evidence of tenderness throughout. Back: No spinal tenderness. No costovertebral tenderness. Full range of motion. Male : Normal genitalia with no discharge or lesions. Skin: Warm, dry with normal turgor. Normal color with no rashes, no lesions, and no evidence of cellulitis. MS/ Extremity: Pulses equal, no cyanosis. Neurovascular intact. Full, normal range of motion. Neuro: Awake and alert, GCS 15, oriented to person, place, time, and situation. Cranial nerves II-XII grossly intact. Motor strength 5/5 in all extremities. Sensory grossly intact. Cerebellar exam normal. Normal gait. Psych: Awake, alert, with orientation to person, place and time. Behavior, mood, and affect are within normal limits. Vital Signs: 12:32 BP 170 / 98; Pulse 64; Resp 15; Temp 97.7; Pulse Ox 100% on R/A; Weight 124.74 kg; hb Height 6 ft. 0 in. ; Pain 8/10; 14:08 BP 173 / 95; Pulse 63; Resp 14; Pulse Ox 99% on R/A; Pain 8/10; hb 14:58 BP 158 / 96; Pulse 62; Resp 15; Pulse Ox 99% on R/A; hb 17:00 BP 160 / 98; Pulse 62; Resp 15; Pulse Ox 100% ; bp 12:32 Body Mass Index 37.30 (124.74 kg, 182.88 cm) hb 12:32 Pain Scale: Adult hb 14:08 Pain Scale: Adult hb MDM: 12:28 Patient medically screened. dedra 12:54 Differential diagnosis: hyperglycemia, hypoglycemic episode. Data reviewed: vital dedra signs, nurses notes, EMS record, lab test result(s), CBC, electrolytes, hepatic panel, urinalysis, EKG, radiologic studies. Consideration of Admission/Observation Escalation of care including admission/observation considered. I considered the following discharge prescriptions or medication management in the emergency department Medications were administered in the Emergency Department. See MAR. Test considered but Not performed: CT: no ct head. Care significantly affected by the following chronic conditions: Diabetes, Hypertension, back fx. 06/20 12:30 Order name: Basic Metabolic Panel; Complete Time: 15:57 [facility] 06/20 12:30 Order name: CBC with Diff; Complete Time: 14:35 [facility] 06/20 12:30 Order name: LFT's; Complete Time: 15:57 [facility] 06/20 12:30 Order name: Magnesium; Complete Time: 15:57 [facility] 06/20 12:30 Order name: NT PRO-BNP; Complete Time: 15:57 [facility] 06/20 12:30 Order name: PT-INR; Complete Time: 15:57 [facility] 06/20 12:30 Order name: Troponin HS; Complete Time: 15:57 [facility] 06/20 12:31 Order name: Lipase; Complete Time: 15:57 [facility] 06/20 12:42 Order name: Glucose, Ancillary Testing; Complete Time: 13:28 [facility] 06/20 12:30 Order name: XRAY Chest (1 view); Complete Time: 13:28 [facility] 06/20 12:30 Order name: EKG; Complete Time: 12:31 [facility] 06/20 12:30 Order name: Diet Regular; Complete Time: 12:31 [facility] 06/20 12:30 Order name: Cardiac monitoring; Complete Time: 14: [facility] 06/20 12:30 Order name: EKG - Nurse/Tech; Complete Time: 14: [facility] 06/20 12:30 Order name: IV Saline Lock; Complete Time: 14: [facility] 06/20 12:30 Order name: Labs collected and sent; Complete Time: 14: [facility] 06/20 12:30 Order name: O2 Per Protocol; Complete Time: 14: [facility] 06/20 12:30 Order name: O2 Sat Monitoring; Complete Time: 14:07 [facility] Administered Medications: 14:07 Drug: morphine IVP or IV 4 mg Route: IVP; Infused Over: 4 mins; Site: right hand; hb 15:00 Follow up: Response: No adverse reaction hb 14:07 Drug: Ondansetron IVP 4 mg Route: IVP; Site: right hand; hb 15:00 Follow up: Response: No adverse reaction hb 16:30 Drug: Potassium PO Effervescent Tablet 50 mEq Route: PO; bp 17:04 Follow up: Response: No adverse reaction bp 16:30 Drug: Furosemide IVP 40 mg Route: IVP; Site: right forearm; bp 17:04 Follow up: Response: No adverse reaction bp Point of Care Testing: Blood Glucose: 12:35 Blood Glucose: 108 mg/dL; hb Ranges: Critical Glucose Levels:Adult <50 mg/dl or >400 mg/dl <40 mg/dl or >180 mg/dl Disposition Summary: 06/20/22 16:21 Discharge Ordered Location: Home dedra Problem: new dedra Symptoms: have improved dedra Condition: Fair dedra Diagnosis - Hypoglycemia, unspecified dedra - Adverse effect of insulin and oral hypoglycemic [antidiabetic] drugs dedra - Unspecified combined systolic (congestive) and diastolic (congestive) heart failure dedra - Hypokalemia dedra Followup: dedra - With: Private Physician - When: 2 - 3 days - Reason: Recheck today's complaints, Continuance of care, Re-evaluation by your physician Followup: dedra - With: - When: 2 - 3 days - Reason: Recheck today's complaints, Continuance of care, Re-evaluation by your physician Followup: dedra - With: - When: 2 - 3 days - Reason: Recheck today's complaints, Re-evaluation by your physician Discharge Instructions: - Discharge Summary Sheet dedra - Heart Failure, Diagnosis dedra - Potassium Content of Foods dedra - Hypoglycemia dedra - Blood Glucose Monitoring, Adult dedra - Heart Failure, Diagnosis, Sfhs-[id number] dedra - Hypoglycemia, Yyzg-ky-[id number] dedra - Hypokalemia dedra - Preventing Hypoglycemia dedra - Heart Failure, Self-Care dedra - Heart Failure, Self-Care, [id number] dedra - Heart Failure Action Plan dedra - Preventing Heart Failure dedra - Living With Heart Failure dedra - Heart Failure Eating Plan dedra Forms: - Medication Reconciliation Form dedra - Thank You Letter dedra - Antibiotic Education dedra - Prescription Opioid Use dedra - Family Work Release iw Signatures: Dispatcher [employer] Andry Ochoa MD MD cha Baxter, Heather, RN RN Luis Fernando Diaz, RN RN bp
[2022-06-20] MEDS ORDERED: FUROSEMIDE 40 MG/4 ML VIAL ONE (16:42)
[2022-06-20] MEDS ORDERED: POTASSIUM 25 MEQ EFFERV TAB ONE (16:42)
[2022-06-20 17:15] VITALS: TEMP 97.7
[2022-06-20 17:20] VITALS: BP 160/98; O2SAT 100
== END 2022-06-20 17:04 | disposition home or self-care (01) ==
LOC: ER 12:26
DX: E11.649 Type 2 diabetes mellitus with hypoglycemia without coma (principal); E87.6 Hypokalemia; I50.40 Unspecified combined systolic (congestive) and diastolic (congestive) heart failure; T38.3X5A Adverse effect of insulin and oral hypoglycemic [antidiabetic] drugs, initial encounter; I10 Essential (primary) hypertension; Z91.013 Allergy to seafood
CPT/HCPCS: 85025; 80048; 36415; 83735; 85610; 82947; 80076; 84484; 83690; 83880; 71045; 99284; J1940; J2405

== ENCOUNTER 2022-07-19 18:11 | Observation (INO) | payer OTHER ==
--- OUTSIDE RECORDS SUMMARY | 2022-07-19 18:15 | XMS REPORT | Continuity of Care Document ---
:1970 Author Organization [facility] t Address [address] [place] [address] Care Team Providers Name Role Phone Asked, No Pcp Primary Care Physician Unavailable Payers Payer Name Policy Type Policy Number Effective Date Expiration Date S ource Problems Condition Condition Condition Status Onset Resolution Last Treating Co mments Source Name Details Category Date Date Treatment Clinician Date Central Central Disease Active [facility]: [facility] [address] Allergies, Adverse Reactions, Alerts Allergy Allergy Status Severity Reaction(s) Onset Inactive Treating Comm ents Source Name Type Date Date Clinician No Known DA Active [facility] Allergie 06-02 [facility] 00:00: [address] NO KNOWN Allergy Active [facility] Family History Family Member Diagnosis Comments Start Date Stop Date Source Natural mother Diabetes [facility] Natural mother Hypertension [facility] Natural sister Heart disease [facility] Natural father Heart disease [facility] Social History Social Habit Start Date Stop Date Quantity Comments Source [facility] History of tobacco Cigarette Smoker [facility] Alcohol intake 2022-05-18 2022-05-18 Current [facility] 00:00:00 00:00:00 non-drinker of Medical Ce nter alcohol (finding) History of Social 2021-02-25 2021-02-[address] function 00:00:00 00:00:00 Hospital Cigarettes smoked 2015-09-18 2015-09-18 [facility] current (pack per 00:00:00 00:00:00 Medical Center day) - Reported Tobacco Comment 2015-09-18 2015-09-18 pt states that GAVINO Guerrier 00:00:00 00:00:00 he is not ready Medical C enter to quit smoking. Sex Assigned At [birth year] G[facility]ivel 00:00:00 [facility]:00 [facility] Center Smoking Status Start Date Stop Date Source Tobacco smoking consumption [facility] unknown Smokes tobacco daily 2015-09-18 00:00:00 [facility] Medications Ordered Filled Start Stop Current Ordering Indication Dosage Frequency Signature Comments Components Source Medication Medication Date Date Medication? Clinician (SIG) Name Name insulin Yes type 2 45U Q.5D Inject [address] detemir 8-11 diabetes Units [facility] (LEVEMIR) 14:31: mellitus subcutaneo Medical 100 unit/mL 08 usly 2 Center injection (two) times daily. insulin 2015- Yes type [address] lispro 8-11 diabetes subcutaneo [facility] es (HUMALOG) 14:31: mellitus usly 3 Me dical 100 unit/mL 08 (three) Cente r injection times daily before meals. insulin 2016-0 Yes type 2 45U Q.5D Inject [address] detemir 8-11 diabetes Units [facility] (LEVEMIR) 14:31: mellitus subcutaneo Medical 100 unit/mL 08 usly 2 Center injection (two) times daily. insulin 2016-0 Yes type [address] lispro 8-11 diabetes subcutaneo Dom[facility] es (HUMALOG) 14:31: mellitus usly 3 Me dical 100 unit/mL 08 (three) Cente r injection times daily before meals. insulin 2016- Yes type 2 45U Q.5D Inject [address] detemir 8-11 diabetes Units [facility] (LEVEMIR) 14:31: mellitus subcutaneo Medical 100 unit/mL 08 usly 2 Center injection (two) times daily. insulin 2016-0 Yes type [address] lispro 8-11 diabetes subcutaneo [facility] es (HUMALOG) 14:31: mellitus usly 3 Me dical 100 unit/mL 08 (three) Cente r injection times daily before meals. ascorbic 2016-0 Yes 500mg QD Take 1 [...] Clinicians Facility Department ID 2021-02-25 2021-02-25 Emergency [facility] Tami [id number] [address] [place] [address] 00:00:00 00:00:[address] Results Test Description Test Time Test Comments Results Result Comments Source GLUCOSE BEDSIDE TESTING 2018-06-24 09:18:00 Test Item Value Reference Range Interpretation Comme nts GLUCOSE BEDSIDE TESTING (test code = GLUBED) 171 MG/DL 60-99 H GLUCOSE BEDSIDE [id number] 15:01:00 Test Item Value Reference Range Interpretation Comments GLUCOSE BEDSIDE TESTING (test code 170 MG/DL 60-99 H = GLUBED) GLUCOSE BEDSIDE [id number] 13:38:00 Test Item Value Reference Range Interpretation Comments GLUCOSE BEDSIDE TESTING (test code 185 MG/DL 60-99 H = GLUBED) Notes Date/Time Note Provider Source 2018-06-18 18:06:00-00:00 [id number] [place] [address] PATIENT NAME: DONALD BAILEY ADMIT DATE: ACCOUNT NO: [id number] ROOM NO: AGE: 48 REPORT TYPE: OPERATIVE REPORT SEX: M ADMITTING PHYSICIAN: ATTENDING PHYSICIAN:Hilario Arce MD OPERATION DATE: 06/18/2018 PREOPERATIVE DIAGNOSIS: Open wounds, left and up per back. POSTOPERATIVE DIAGNOSIS: Open wounds, left and u pper back. PROCEDURE: 1. Excision and fasciocutaneous flap closure of left lower back wound. 2. Excision and fasciocutaneous flap closure of upper back wound. SURGEON: Hilario Arce MD DEVELOPMENTAL SERVICES WORKER: ANESTHESIA: General. 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 H e had undergone previous radical debridement of the wounds and been left with large open wounds on h is left lower back and flank. He had been undergoing wound care and an tibiotic treatment at [facility]. The wounds were now clean and granul ating and the patient was brought to the operating room for definitive wou nd closure. PROCEDURE IN DETAIL: The patient was brought to the operating room and placed on the table in supine position. After induction of general anesthesia, the patient was placed into prone position. His back was prepped and draped in the usual sterile manner. The left lower back wound was marked out for an oblique transverse incision in line with the rel axed skin tension lines. The wound was excised as a large obliquely oriented ellipse. C omplete excision of the wound including its sidewalls and bursa was performed down to the layer of the latissimus dorsi and lumbar musculature. The wou nd was irrigated with antibiotic solution and all bursa tissue and gra nulation tissue excised. The wound was then closed with fasciocutaneous advan cement flaps based off of the latissimus dorsi fascia superiorly and the glute us jim fascia inferiorly. The flaps were elevated in the subfascial plane and then advanced toward one another to approximate. A 15-Icelandic round drain was left under the flaps and brought out through a separate stab incision in the left flank. The drain was secured to the skin with a 2-0 silk sutu re and connected to suction. The flaps were approximated using interrupted 0 Vicryl sut ures on the fascial layer followed by a separate layer of interrupted 0 Vicryl on the subcutaneous tissue and dermis. Skin was then closed with 2-0 nylon sutures. Attention was now PATIENT NAME: DONALD BAILEY ACCOUNT #: [id number] turned to the upper back wound. The wound was ex cised as a longitudinally oriented ellipse in line with the wound edges. A full-thickness excision was performed down to the level of the fascia. The r ight and left skin edges were elevated as fasciocutaneous flaps based off of the trapezius muscle. Flaps were elevated and then advanced t oward the midline to approximate using interrupted 0 Vicryl sutures on the deep layer and another lay er of interrupted 2-0 Vicryls were placed in the subcutaneous tissue and fasci a. The skin was then closed with 2-0 nylon sutures. Ster ile dressing was applied with Xeroform and gauze to each wound. The patient tolerated the pr ocedure well and was taken to recovery in stable condition. Dictated By: Hilario Arce MD WT: OP:DENICE/TIMOTEO/VANGIE Conf#: [id number]/DID#: [id number] Authenticated by Hilario Arce MD On 019 10:21:50 AM at 1022 PATIENT NAME: DONALD BAILEY ACCOUNT #: [id number]
[2022-07-19 18:56] LABS: Absolute Lymphocytes (CBC) 1.3 K/uL (0.7-4.9); Hematocrit 36.2 % (39.6-49.0); Lymphocytes % 26.6 % (15.3-44.8); MCV 88.6 fL (80-100); RBC Red Blood Cell Count 4.09 M/uL (4.33-5.43)
--- NOTE | 2022-07-19 19:03 | RAD REPORT ---
EXAM DESCRIPTION: RAD - Chest Single View - 07/19/2022 6:58 pm CLINICAL HISTORY: SOB COMPARISON: Chest Single View dated 06/20/2022; Chest Single View dated 04/24/2018; Chest Single View da pete 09/17/2015; CHEST PA AND LAT 2 VIEW dated 07/26/2011 FINDINGS: Lines: None. Lungs: Pulmonary edema. Pleural: Bilateral pleural effusions . Cardiac: Cardiomegaly. Mediastinum: Within normal limits. Bones: No acute fractures. Fusion hardware in the cervical spine. Other: None IMPRESSION: Pulmonary edema with enlarging bilateral pleural effusions.
[2022-07-19 19:11] LABS: Potassium 3.5 mEq/L (3.5-5.1); Troponin High Sensitivity 53.1 pg/mL (<58.9)
--- NOTE | 2022-07-19 20:44 | EDPHYS ---
Physician Documentation [facility] Name: Jonnie De La Rosa Age: 52 yrs Sex: Male : 1970 Arrival Date: 07/19/2022 Time: 18:11 Bed 6 Private MD: ED Physician Sedrick Guzmán HPI: 07/19 18:28 This 52 yrs old Black Male presents to ER via EMS with complaints of Breathing jmm Difficulty. 18:28 The patient has shortness of breath at rest. Onset: The symptoms/episode began/occurred jmm gradually. The patient's shortness of breath is aggravated by nothing, is alleviated by nothing. The patient has experienced similar episodes in the past. Historical: - Allergies: 18:21 shellfish derived; kc6 - PMHx: 18:21 back sx, fx vertebre; Diabetes - IDDM; Hypertension; neuropathy; stroke; kc6 - Immunization history:: Client reports having NOT received the Covid vaccine. Flu vaccine is not up to date. - Social history:: Smoking status: Patient/guardian denies using tobacco. ROS: 18:28 Constitutional: Negative for fever, chills, and weight loss. jmm 18:28 Respiratory: Positive for shortness of breath. 18:28 All other systems are negative. Exam: 18:28 Constitutional: This is a well developed, well nourished patient who is awake, alert, jmm and in no acute distress. Head/Face: atraumatic. Eyes: EOMI, no conjunctival erythema appreciated ENT: Moist Mucus Membranes Neck: Trachea midline, Supple Chest/axilla: Normal chest wall appearance and motion. Cardiovascular: Regular rate and rhythm. No edema appreciated Respiratory: Normal respirations, no respiratory distress appreciated Abdomen/GI: Non distended Back: Normal ROM Skin: General appearance color normal MS/ Extremity: Moves all extremities, no obvious deformities appreciated, no edema noted to the lower extremities Neuro: Awake and alert Psych: Behavior is normal, Mood is normal, Patient is cooperative and pleasant Vital Signs: 18:20 BP 169 / 110; Pulse 89; Resp 19 S; Pulse Ox 100% on Non-rebreather mask; Weight 117.93 kc6 kg (R); Height 6 ft. 0 in. (R); Pain 0/10; 18:29 Temp 98.3(O); ld1 18:41 BP 175 / 126; Pulse 86; Resp 17; Pulse Ox 87% on R/A; ld1 18:50 BP 175 / 126; Pulse 89; Resp 18; Pulse Ox 90% on R/A; ld1 22:05 BP 168 / 97; Pulse 85; Resp 17; Pulse Ox 92% on R/A; ll3 18:20 Body Mass Index 35.26 (117.93 kg, 182.88 cm) [facility] 18:20 Pain Scale: Adult kc6 MDM: 18:[address] [facility] 21:27 Data reviewed: vital signs, EMS record. [facility] 21:27 Counseling: I had a detailed discussion with the patient and/or guardian regarding: the [facility] historical points, exam findings, and any diagnostic results supporting the discharge/admit diagnosis, lab results, radiology results, the need for further work-up and treatment in the hospital. 07/19 18:41 Order name: Basic Metabolic Panel; Complete Time: 19:16 [facility] 07/19 18:41 Order name: CBC with Diff; Complete Time: 19:16 [facility] 07/19 18:41 Order name: Troponin HS; Complete Time: 19:16 [facility] 07/19 18:42 Order name: SARS-COV-2 RT PCR; Complete Time: 19:30 [facility] 07/19 18:42 Order name: Influenza Screen (a \T\ B); Complete Time: 19:16 [facility] 07/19 20:55 Order name: Basic Metabolic Panel [facility] 07/19 20:55 Order name: Basic Metabolic Panel [facility] 07/19 20:55 Order name: CBC with Automated Diff [facility] 07/19 20:55 Order name: CBC with Automated Diff [facility] 07/19 20:55 Order name: NT PRO-BNP [facility] 07/19 20:55 Order name: NT PRO-BNP [facility] 07/19 18:41 Order name: XRAY Chest (1 view); Complete Time: 19:04 [facility] 07/19 18:41 Order name: EKG; Complete Time: 18:41 [facility] 07/19 20:55 Order name: 60g Consistent Carbohydrate (ADA 1800/2000) [facility] 07/19 18:41 Order name: Cardiac monitoring; Complete Time: 18:42 [facility] 07/19 18:41 Order name: EKG - Nurse/Tech; Complete Time: 18:42 [facility] 07/19 18:41 Order name: IV Saline Lock; Complete Time: 18:48 [facility] 07/19 18:41 Order name: Labs collected and sent; Complete Time: 18:48 [facility] 07/19 18:41 Order name: O2 Per Protocol; Complete Time: 18:42 [facility] 07/19 18:41 Order name: O2 Sat Monitoring; Complete Time: 18:42 [facility] Administered Medications: 21:27 Drug: Rocephin IV 1 grams Route: IV; Rate: calculated rate; Site: right hand; ll3 22:05 Follow up: Response: No adverse reaction; IV Status: Completed infusion; IV Intake: [id number] 21:27 Drug: AZITHromycin PO 500 mg Route: PO; ll3 22:05 Follow up: Response: No adverse reaction ll3 21:27 Drug: Oseltamivir PO 75 mg Route: PO; ll3 22:05 Follow up: Response: No adverse reaction ll3 Disposition Summary: 07/19/22 20:43 Hospitalization Ordered Hospitalization Status: Observation [facility] Provider: Gonzalez Morse Location: Telemetry/MedSur (observation) jm Condition: Stable jmm Problem: new jmm Symptoms: have improved jmm Bed/Room Type: Standard [facility] Room Assignment: 217(07/19/22 21:07) mw Diagnosis - Influenza B jmm - Hypoxia jmm - Pleural effusion jm Forms: - Medication Reconciliation Form jmm - SBAR form jmm Signatures: Dispatcher [employer] EDMegan Angelo RN RN Amadeo Marcus PA PA m Ranjeet Harris RN RN ll3 Joselyn Walter RN RN kc6 Corrections: (The following items were deleted from the chart) : 20:43 [facility] mw
--- NOTE | 2022-07-19 20:44 | ER ---
Nurse's Notes [facility] Name: Jonnie De La Rosa Age: 52 yrs Sex: Male : 1970 Arrival Date: 07/19/2022 Time: 18:11 Bed 6 Private MD: Diagnosis: Influenza B;Hypoxia;Pleural effusion Presentation: 07/19 18:20 Chief complaint: EMS states: pt reports shortness of breath and was found to be 60% on kc6 RA. BGL en route 161. Coronavirus screen: At this time, the client does not indicate any symptoms associated with coronavirus-19. Ebola Screen: No symptoms or risks identified at this time. Initial Sepsis Screen: Does the patient meet any 2 criteria? No. Patient's initial sepsis screen is negative. Does the patient have a suspected source of infection? No. Patient's initial sepsis screen is negative. Risk Assessment: Do you want to hurt yourself or someone else? Patient reports no desire to harm self or others. Onset of symptoms was July 19, 2022. 18:20 Method Of Arrival: EMS: [facility] kc6 18:20 Acuity: BAO 3 kc6 Triage Assessment: 18:23 General: Appears in no apparent distress. comfortable, obese, well groomed, Behavior is kc6 calm, cooperative, appropriate for age. Pain: Denies pain. EENT: No signs and/or symptoms were reported regarding the EENT system. Neuro: Croft Agitation-Sedation Scale (RASS): 0 - Alert and Calm Level of Consciousness is awake, alert, obeys commands, Oriented to person, place, time, situation, Appropriate for age. Cardiovascular: Heart tones S1 S2 present Capillary refill < 3 seconds. Respiratory: Reports shortness of breath at rest Airway is patent Trachea midline Respiratory effort is even, unlabored, Respiratory pattern is regular, symmetrical, Onset: The symptoms/episode began/occurred suddenly, the patient has mild shortness of breath. GI: No signs and/or symptoms were reported involving the gastrointestinal system. : No signs and/or symptoms were reported regarding the genitourinary system. Derm: No signs and/or symptoms reported regarding the dermatologic system. Skin is intact, Skin is pink, warm \T\ dry. Musculoskeletal: No signs and/or symptoms reported regarding the musculoskeletal system. Circulation, motion, and sensation intact. Capillary refill < 3 seconds. Historical: - Allergies: 18:21 shellfish derived; kc6 - PMHx: 18:21 back sx, fx vertebre; Diabetes - IDDM; Hypertension; neuropathy; stroke; kc6 - Immunization history:: Client reports having NOT received the Covid vaccine. Flu vaccine is not up to date. - Social history:: Smoking status: Patient/guardian denies using tobacco. Screenin:24 [facility] ED Fall Risk Assessment (Adult) History of falling in the last 3 months, [facility] including since admission No falls in past 3 months (0 pts) Confusion or Disorientation No (0 pts) Intoxicated or Sedated No (0 pts) Impaired Gait Yes (1 pt) Mobility Assist Device Used Yes (1 pt) Altered Elimination No (0 pt) Score/Fall Risk Level 0 - 2 = Low Risk Oriented to surroundings, Maintained a safe environment, Educated pt \T\ family on fall prevention, incl call for assistance when getting out of bed, Assessed \T\ reinforced patient's understanding of fall precautions, Hourly rounding (assess needs \T\ fall precautionary measures) done. Abuse screen: Denies threats or abuse. Denies injuries from another. Nutritional screening: No deficits noted. Tuberculosis screening: No symptoms or risk factors identified. Assessment: 18:24 Reassessment: please see triage assessment. [facility] Vital Signs: 18:20 BP 169 / 110; Pulse 89; Resp 19 S; Pulse Ox 100% on Non-rebreather mask; Weight 117.93 kc6 kg (R); Height 6 ft. 0 in. (R); Pain 0/10; 18:29 Temp 98.3(O); ld1 18:41 BP 175 / 126; Pulse 86; Resp 17; Pulse Ox 87% on R/A; ld1 18:50 BP 175 / 126; Pulse 89; Resp 18; Pulse Ox 90% on R/A; ld1 22:05 BP 168 / 97; Pulse 85; Resp 17; Pulse Ox 92% on R/A; ll3 18:20 Body Mass Index 35.26 (117.93 kg, 182.88 cm) 6 18:20 Pain Scale: Adult [facility] ED Course: 18:19 Patient arrived in ED. ld1 18:20 Joselyn Walter, RN is Primary Nurse. 6 18:21 Triage completed. kc6 18:23 Arm band placed on. kc6 18:25 Patient has correct armband on for positive identification. Placed in gown. Bed in low kc6 position. Call light in reach. Side rails up X2. 18:27 Amadeo Ozuna PA is PHCP. radha 18:27 Sedrick Guzmán MD is Attending Physician. m 18:34 EKG done, by ED staff, reviewed by Amadeo CONNER. wm 18:49 Initial lab(s) drawn, by mi, sent to lab. Inserted saline lock: 22 gauge in right jl7 wrist, using aseptic technique. Blood collected. 18:50 Influenza Screen (a \T\ B) Sent. ld1 18:50 SARS-COV-2 RT PCR Sent. ld1 18:50 CBC with Diff Sent. ld1 18:50 Troponin HS Sent. ld1 18:50 Basic Metabolic Panel Sent. ld1 18:59 XRAY Chest (1 view) In Process Unspecified. EDMS 20:42 Primary Nurse role handed off by Joselyn Walter RN 20:43 Gonzalez Morse MD is Hospitalizing Provider. [facility] 22:04 No provider procedures requiring assistance completed. Patient admitted, IV remains in ll3 place. Administered Medications: 21:27 Drug: Rocephin IV 1 grams Route: IV; Rate: calculated rate; Site: right hand; ll3 22:05 Follow up: Response: No adverse reaction; IV Status: Completed infusion; IV Intake: 45ulbq5 21:27 Drug: AZITHromycin PO 500 mg Route: PO; ll3 22:05 Follow up: Response: No adverse reaction ll3 21:27 Drug: Oseltamivir PO 75 mg Route: PO; ll3 22:05 Follow up: Response: No adverse reaction ll3 Medication: 22:04 VIS not applicable for this client. ll3 Intake: 22:05 IV: 50ml; Total: 50ml. ll3 Outcome: 20:43 Decision to Hospitalize by Provider. evan 22:04 Admitted to Med/surg accompanied by tech, via stretcher, room 217. ll3 22:04 Condition: stable 22:04 Instructed on the need for admit, Demonstrated understanding of instructions. 22:05 Patient left the ED. vc1 Signatures: Dispatcher [employer] EDMS Amadeo Ozuna PA PA jmm Leal Jahala, RN RN jl7 Margie Monique, RN RN ld1 Zora Forde Lynsea, RN RN ll3 Magalis Lazcano, RN RN vc1 Joselyn Walter, RN RN kc6
[2022-07-19] MEDS ORDERED: GLUCAGON 1 MG/VIAL IM PRN (20:50)
[2022-07-19] MEDS ORDERED: ALBUTEROL 2.5 MG/3 ML NEB SOL NEB PRN (20:50)
[2022-07-19] MEDS ORDERED: D50W 25 GM/50 ML SYRINGE IV PRN (20:50)
[2022-07-19] MEDS ORDERED: ACETAMINOPHEN 500 MG TAB PO PRN (20:50)
[2022-07-19] MEDS ORDERED: IPRATROPIUM BROM 0.5MG/2.5ML NEB PRN (20:50)
[2022-07-19] MEDS ORDERED: ONDANSETRON 4 MG/2 ML VIAL IV PRN (20:50)
[2022-07-19] MEDS: INSULIN -REGULAR HUMAN 50 UNIT/0.5 ML ML SQ SCH (21:00)
[2022-07-19] MEDS ORDERED: D10W 125 ML IV PRN (21:19)
[2022-07-19] MEDS ORDERED: CEFTRIAXONE 1000 MG/VIAL ONE (21:25)
[2022-07-19] MEDS ORDERED: NA CHLORIDE 0.9% 50 ML ONE (21:25)
[2022-07-19] MEDS ORDERED: AZITHROMYCIN 250 MG TAB ONE (21:25)
[2022-07-19] MEDS ORDERED: OSELTAMIVIR 75 MG CAP PO ONE (21:25)
[2022-07-19 22:44] VITALS: BMI 33.9
[2022-07-19] MEDS: OSELTAMIVIR 75 MG CAP PO SCH (23:06)
[2022-07-20 03:54] LABS: Hematocrit 34.3 % (39.6-49.0); Lymphocytes % 34.1 % (15.3-44.8); MCV 89.5 fL (80-100); MPV 8.4 fL (7.6-11.3); RBC Red Blood Cell Count 3.83 M/uL (4.33-5.43)
[2022-07-20 04:13] LABS: Potassium 3.3 mEq/L (3.5-5.1)
[2022-07-20] MEDS: INSULIN -REGULAR HUMAN 50 UNIT/0.5 ML ML SQ SCH ×4 (07:30→20:40)
[2022-07-20] MEDS ORDERED: CEFTRIAXONE 1,000 MG in NA CHLORIDE 0.9% 50 ML IVPB SCH (09:00)
[2022-07-20] MEDS: OSELTAMIVIR 75 MG CAP PO SCH ×2 (10:44→20:39)
[2022-07-20] MEDS ORDERED: GLUCAGON 1 MG/VIAL IM PRN (11:56)
--- NOTE | 2022-07-20 12:05 | P.HP ---
Certification for Inpatient Patient admitted to: Inpatient With expected LOS: >2 Midnights Patient will require the following post-hospital care: Assisted Practitioner: I am a practitioner with admitting privileges, knowledge of patient current condition, hospital course, and medical plan of care. Services: Services provided to patient in accordance with Admission requirements found in Title 42 Section 412.3 of the Code of Federal Regulations Patient History Date of Service: 07/20/22 Primary Care Provider: Mini Reason for admission: bilateral pneumonia, influenza History of Present Illness: Patient of mine who is home bound. Secondary to paraplegia. The patient has been getting sob for the past few days. He called ems and was brought to the ER. Had an spO2 of 87% on RA. Was found to have a bilateral pneumonia and influenza. We have been trying to get the patient into a inpatient PT facility. He has been bed bound due to hemiplegia. The patient lives with his cousin and elderly aunt. As his cousin works he is stuck in bed untill she returns home in the evening. On a home visit, noticed the patient cannot change himself, transfer or get off the floor in case of falls. The elderly aunt cannot lift him. Which leaves him in danger till his cousin comes home from work. Allergies shellfish derived Allergy (Verified 07/19/22 22:48) Hives/Rash Home Medications: Gabapentin [Neurontin] 800 mg PO QID 09/06/20 Apixaban [Eliquis] 5 mg PO BID 07/20/22 Aspirin [Aspirin EC 81 MG] 81 mg PO DAILY 07/20/22 Atorvastatin Calcium [Lipitor] 80 mg PO BEDTIME 07/20/22 Divalproex Sodium 250 mg PO BID 07/20/22 Insulin Detemir [Levemir] 35 unit SQ BIDWM 07/20/22 Losartan Potassium [Cozaar] 25 mg PO DAILY 07/20/22 carvediloL [Carvedilol] 6.25 mg PO BID 07/20/22 - Past Medical/Surgical History Has patient received pneumonia vaccine in the past: No Diabetic: Yes -: Diabetes mellitus type 2 -: Hypertension -: Diabetic neuropathy -: Tobacco abuse -: History of MRSA -: History of spinal stenosis/cord compression and [id number] -: Previous I and D's of abscesses in the past Psychosocial/ Personal History: He is currently . Has no children. He has not worked. Patient is homeless - Family History Mother -: Diabetes - Social History Smoking Status: Former smoker Alcohol use: No CD- Drugs: No Caffeine use: Yes Place of Residence: Home Review of Systems 10-point ROS is otherwise unremarkable Respiratory: Shortness of Breath Neurological: Other (hemiplegia left side ) Physical Examination - Vital Signs Temperature: 98.9 F Blood Pressure: 150/79 Pulse: 79 Respirations: 14 Pulse Ox (%): 100 - Physical Exam General: Alert, In no apparent distress HEENT: Atraumatic, PERRLA, Mucous membr. moist/pink, EOMI, Sclerae nonicteric Neck: Supple, 2+ carotid pulse no bruit, No LAD, Without JVD or thyroid abnormality Respiratory: Clear to auscultation bilaterally, Normal air movement Cardiovascular: Regular rate/rhythm, Normal S1 S2 Gastrointestinal: Normal bowel sounds, No tenderness Musculoskeletal: No tenderness Integumentary: No rashes Neurological: Normal speech, Normal tone, Normal affect, Abnormal strength (hemiplegia on the left side ) Lymphatics: No axilla or inguinal lymphadenopathy - Studies Laboratory Data (last 24 hrs) 07/19/22 18:48: WBC 5.00, Hgb 12.0 L, Hct 36.2 L, Plt Count 198 07/19/22 18:48: Sodium 141, Potassium 3.5, BUN 13, Creatinine 0.67 L, Glucose 135 H Microbiology Data (last 24 hrs): 07/19/22 18:47 Nasopharnyx Influenza Type A Antigen Screen - Final 07/19/22 18:47 Nasopharnyx Influenza Type B Antigen Screen - Final Assessment and Plan - Problems (Diagnosis) (1) Pneumonia and influenza Current Visit: Yes Status: Acute Plan: Will keep him on breathing treatments, zithromax and tamiflu (2) Hemiplegia affecting left side in left-dominant patient as late effect of cerebrovascular disease Current Visit: Yes Status: Chronic Plan: consult director of social work for snf placement, with PT. (3) Diabetes mellitus with neuropathy Current Visit: Yes Status: Chronic Plan: continue his insulin ADa Diet. Low dose sliding scale Qualifiers: Diabetes mellitus type: type 2 Diabetes mellitus care home insulin use: with termite helper use Qualified Code(s): E11.40 - Type 2 diabetes mellitus with diabetic neuropathy, unspecified; Z79.4 - MCFP (current) use of insulin (4) Hyperlipidemia Onset Date: 09/18/15 Current Visit: No Status: Chronic Plan: continue statin Qualifiers: Hyperlipidemia type: moderate mixed hyperlipidemia not requiring statin therapy Qualified Code(s): E78.2 - Mixed hyperlipidemia (5) Hypertension Onset Date: 09/18/15 Current Visit: No Status: Chronic Plan: restart his home losartan. Adjust as needed. Qualifiers: Hypertension type: primary hypertension Qualified Code(s): I10 - Essential (primary) hypertension Discharge Plan: Residential Plan to discharge in: 48 Hours - Advance Directives Does patient have a Living Will: No Does patient have a Durable POA for Healthcare: No - Code Status/Comfort Care Code Status Assessed: Yes Code Status: Full Code Physician Review: Patient Assessed, Agree with Above Assessment and Plan Critical Care: No Time Spent Managing Pts Care (In Minutes): 45
[2022-07-20] MEDS ORDERED: D10W 250 ML BAG IV PRN (12:10)
[2022-07-20] MEDS ORDERED: ALBUTEROL 2.5 MG/3 ML NEB SOL NEB PRN (13:00)
[2022-07-20] MEDS ORDERED: IPRATROPIUM BROM 0.5MG/2.5ML NEB PRN (13:00)
[2022-07-20] MEDS: GABAPENTIN 400 MG CAP PO SCH ×3 (13:50→20:40)
--- NOTE | 2022-07-20 14:18 | EKG ---
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
[2022-07-20] MEDS ORDERED: HOME MED 1 EA UNK (Insulin Detemir [Levemir] 100 UNIT/ML Vial) SQ SCH (17:00)
[2022-07-20] MEDS: INSULIN GLARGINE 100 UNIT/ML SQ SCH (17:27)
[2022-07-20] MEDS ORDERED: AZITHROMYCIN IV 250 MG in NA CHLORIDE 0.9% 250 ML IVPB SCH (18:00)
[2022-07-20] MEDS: DIVALPROEX DR 250 MG TAB PO SCH (20:38)
[2022-07-20] MEDS: carvediloL 6.25 MG TAB PO SCH (20:39)
[2022-07-20] MEDS: APIXABAN 5 MG TABLET PO SCH (20:40)
[2022-07-20] MEDS ORDERED: ATORVASTATIN 80 MG TAB PO SCH (21:00)
[2022-07-21] MEDS: INSULIN -REGULAR HUMAN 50 UNIT/0.5 ML ML SQ SCH (07:30)
[2022-07-21] MEDS: INSULIN GLARGINE 100 UNIT/ML SQ SCH (08:34)
[2022-07-21] MEDS: DIVALPROEX DR 250 MG TAB PO SCH (08:35)
[2022-07-21] MEDS: GABAPENTIN 400 MG CAP PO SCH (08:36)
[2022-07-21] MEDS: carvediloL 6.25 MG TAB PO SCH (08:36)
[2022-07-21] MEDS: OSELTAMIVIR 75 MG CAP PO SCH (08:36)
[2022-07-21 08:38] VITALS: BP 157/87
[2022-07-21] MEDS ORDERED: HOME MED 1 EA UNK (Losartan Potassium [Cozaar] 25 MG Tablet) PO SCH (09:00)
[2022-07-21] MEDS ORDERED: ASPIRIN EC 81 MG TAB PO SCH (09:00)
[2022-07-21] MEDS ORDERED: LOSARTAN POTASSIUM 50 MG TABLET PO SCH (09:00)
[2022-07-21 09:15] VITALS: TEMP 98.2
[2022-07-21] MEDS: APIXABAN 5 MG TABLET PO SCH (09:20)
--- NOTE | 2022-07-21 09:40 | P.DS ---
Admission Date: 07/19/22 Discharge Date: 07/21/22 Primary Care Provider: Mini Disposition: ROUTINE DISCHARGE Discharge Condition: GOOD Reason for Admission: bilateral pneumonia, influenza - Problems (1) Pneumonia and influenza Current Visit: Yes Status: Acute (2) Hemiplegia affecting left side in left-dominant patient as late effect of ce rebrovascular disease Current Visit: Yes Status: Chronic (3) Diabetes mellitus with neuropathy Current Visit: Yes Status: Chronic Qualifiers: Diabetes mellitus type: type 2 Diabetes mellitus jail insulin use: with jail use Qualified Code(s): E11.40 - Type 2 diabetes mellitus with diabetic neuropathy, unspecified; Z79.4 - halfway (current) use of insulin (4) Hyperlipidemia Onset Date: 09/18/15 Current Visit: No Status: Chronic Qualifiers: Hyperlipidemia type: moderate mixed hyperlipidemia not requiring statin therapy Qualified Code(s): E78.2 - Mixed hyperlipidemia (5) Hypertension Onset Date: 09/18/15 Current Visit: No Status: Chronic Qualifiers: Hypertension type: primary hypertension Qualified Code(s): I10 - Essential (primary) hypertension Brief History of Present Illness: Patient of mine who is home bound. Secondary to paraplegia. The patient has been getting sob for the past few days. He called ems and was brought to the ER. Had an spO2 of 87% on RA. Was found to have a bilateral pneumonia and influenza. We have been trying to get the patient into a inpatient PT facility. He has been bed bound due to hemiplegia. The patient lives with his cousin and elderly aunt. As his cousin works he is stuck in bed untill she returns home in the evening. On a home visit, noticed the patient cannot change himself, transfer or get off the floor in case of falls. The elderly aunt cannot lift him. Which leaves him in danger till his cousin comes home from work. Hospital Course: Patient was admitted for bilateral pneumonia. This morning he is feeling better and wishes to go home. States he feels the PT/ot he is recieving at home is sufficent. will comply and discharge the patient home. Vital Signs/Physical Exam: Temp Pulse Resp BP Pulse Ox 98.2 F 71 18 157/87 H 100 07/21/22 08:00 07/21/22 08:36 07/21/22 08:00 07/21/22 08:36 07/21/22 08:00 General: Alert, In no apparent distress HEENT: Atraumatic, PERRLA, EOMI Neck: Supple, JVD not distended Respiratory: Clear to auscultation bilaterally, Normal air movement Cardiovascular: Regular rate/rhythm, Normal S1 S2 Gastrointestinal: Normal bowel sounds, No tenderness Musculoskeletal: No tenderness Integumentary: No rashes Neurological: Normal speech, Normal tone, Normal affect Lymphatics: No axilla or inguinal lymphadenopathy Laboratory Data at Discharge: WBC 5.80 thou/uL (4.3-10.9) 07/20/22 03:28 Hgb 11.3 g/dL (13.6-17.9) L 07/20/22 03:28 Hct 34.3 % (39.6-49.0) L 07/20/22 03:28 Plt Count 165 thou/uL (152-406) 07/20/22 03:28 Sodium 141 mEq/L (136-145) 07/20/22 03:28 Potassium 3.3 mEq/L (3.5-5.1) L 07/20/22 03:28 BUN 13 mg/dL (7-18) 07/20/22 03:28 Creatinine 0.66 mg/dL (0.70-1.30) L 07/20/22 03:28 Glucose 134 mg/dL (74-106) H 07/20/22 03:28 Triglycerides 56 mg/dL (<150) 07/21/22 02:32 Cholesterol 124 mg/dL (<200) 07/21/22 02:32 HDL Cholesterol 39 mg/dL (40-60) L 07/21/22 02:32 Cholesterol/HDL Ratio 3.18 07/21/22 02:32 Home Medications: Gabapentin [Neurontin] 800 mg PO QID 09/06/20 Apixaban [Eliquis] 5 mg PO BID 07/20/22 Aspirin [Aspirin EC 81 MG] 81 mg PO DAILY 07/20/22 Atorvastatin Calcium [Lipitor] 80 mg PO BEDTIME 07/20/22 Divalproex Sodium 250 mg PO BID 07/20/22 Insulin Detemir [Levemir] 35 unit SQ BIDWM 07/20/22 Losartan Potassium [Cozaar] 25 mg PO DAILY 07/20/22 carvediloL [Carvedilol] 6.25 mg PO BID 07/20/22 Azithromycin [Zithromax] 500 mg PO DAILY 5 Days #5 tab 07/21/22 Oseltamivir Phosphate [Tamiflu] 75 mg PO BID 3 Days #6 tab 07/21/22 New Medications: Oseltamivir Phosphate [Tamiflu] 75 mg PO BID 3 Days #6 tab Azithromycin [Zithromax] 500 mg PO DAILY 5 Days #5 tab Diet: ADA Activity: Ad kyleigh Followup: Gonzalez Morse MD [Primary Care Provider] - Physician Review: Patient Assessed, Agree with Above Assessment and Plan Time spent managing pt's care (in minutes): 30
[2022-07-21 12:46] VITALS: O2SAT 98
== END 2022-07-21 12:33 | disposition home or self-care (01) ==
LOC: ER 18:11 → 2ND 20:49
PROVIDERS: ADMIT Internal Medicine; ATTEND Internal Medicine
DX: J18.9 Pneumonia, unspecified organism (principal); J10.1 Influenza due to other identified influenza virus with other respiratory manifestations; E11.40 Type 2 diabetes mellitus with diabetic neuropathy, unspecified; Z79.4 Long term (current) use of insulin; E78.5 Hyperlipidemia, unspecified; I10 Essential (primary) hypertension; I69.959 Hemiplegia and hemiparesis following unspecified cerebrovascular disease affecting unspecified side; Z20.822 Contact with and (suspected) exposure to COVID-19
CPT/HCPCS: 96365; 93005; 85025 ×2; 80048 ×2; 36415 ×2; 80061; 82947 ×7; 84443; 83036; 84484; 83880; 87635; 87804 ×2; 71045; 94760; 99285; J7050; J0696 ×2; G0378 ×4

== ENCOUNTER 2022-07-23 14:05 | Inpatient (IN) | payer OTHER ==
--- OUTSIDE RECORDS SUMMARY | 2022-07-23 14:08 | XMS REPORT | Continuity of Care Document ---
:1970 Author Organization [facility] t Address [address] [place] [address] Care Team Providers Name Role Phone Asked, No Pcp Primary Care Physician Unavailable Payers Payer Name Policy Type Policy Number Effective Date Expiration Date S ource Problems Condition Condition Condition Status Onset Resolution Last Treating Co mments Source Name Details Category Date Date Treatment Clinician Date Central Central Disease [facility] Allergies, Adverse Reactions, Alerts Allergy Allergy Status Severity Reaction(s) Onset Inactive Treating Comm ents Source Name Type Date Date Clinician No Known DA Active [facility] Allergie 06-02 [facility] 00:00: [address] NO KNOWN Allergy Active [facility] Family History Family Member Diagnosis Comments Start Date Stop Date Source Natural mother Diabetes [facility] Natural mother Hypertension [facility] Natural sister Heart disease [facility] Natural father Heart disease [facility] Social History Social Habit Start Date Stop Date Quantity Comments Source Gender identity [facility] History of tobacco Cigarette Smoker [facility] use [facility] Alcohol intake 2022-05-18 2022-05-[address] [facility] 00:[facility]00 00:00:00 non-drinker of Medical Ce nter alcohol (finding) History of Social 2021-02-25 2021-02-[address] function 00:00:00 00:00:00 Hospital Cigarettes smoked 2015-09-18 2015-09-18 GAVINO Salas [facility] current (pack per 00:00:00 00:00:00 [facility] Center day) - Reported Tobacco Comment 2015-09-18 2015-09-18 pt states that GAVINO Guerrier 00:00:00 00:00:00 he is not ready Medical C enter to quit smoking. Sex Assigned At [birth year] [employer] 00:00:00 00:00:00 Hospital Smoking Status Start Date Stop Date Source Tobacco smoking consumption [facility] unknown Smokes tobacco daily 2015-09-18 00:00:00 [facility] Medications Ordered Filled Start Stop [...] Clinicians Facility Department ID 2021-02-25 2021-02-[address] [facility] Tami [id number] [address] [place] [address] 00:00:00 00:00:[address] Results Test Description Test Time Test Comments Results Result Comments Source GLUCOSE BEDSIDE TESTING 2018-06-24 09:18:00 Test Item Value Reference Range Interpretation Comme nts GLUCOSE BEDSIDE TESTING (test code = GLUBED) 171 MG/DL 60-99 H GLUCOSE BEDSIDE [id number] 15:01:00 Test Item Value Reference Range Interpretation Comments GLUCOSE BEDSIDE TESTING (test code 170 MG/DL 60-99 H = GLUBED) GLUCOSE BEDSIDE [id number] 13:38:00 Test Item Value Reference Range Interpretation Comments GLUCOSE BEDSIDE TESTING (test code 185 MG/DL 60-99 H = GLUBED) Notes Date/Time Note Provider Source 2018-06-18 18:06:00-00:00 [id number] [facility] [address] [place] [address] PATIENT NAME: DONALD BAILEY ADMIT DATE: ACCOUNT NO: [id number] ROOM NO: AGE: 48 REPORT TYPE: OPERATIVE REPORT SEX: M ADMITTING PHYSICIAN: ATTENDING PHYSICIAN:Hilario Arce MD OPERATION DATE: 06/18/2018 PREOPERATIVE DIAGNOSIS: Open wounds, left and up per back. POSTOPERATIVE DIAGNOSIS: Open wounds, left and u pper back. PROCEDURE: 1. Excision and fasciocutaneous flap closure of left lower back wound. 2. Excision and fasciocutaneous flap closure of upper back wound. SURGEON: Hilario Arce MD SAMPLE HAND: ANESTHESIA: General. INDICATION FOR PROCEDURE: The patient [...] wound care and an tibiotic treatment at [facility]. The wounds were now clean and granul [...] advanced toward one another to approximate. A 15-Syrian round drain was left under the flaps [...] PATIENT NAME: DONALD BAILEY ACCOUNT #: [id number] turned to the upper back wound. The [...] condition. Dictated By: Hilario Arce MD WT: OP:ZTANI/TIMOTEO/VANGIE Conf#: [id number]/DID#: [id number] Authenticated by Hilario Arce MD On 019 10:21:50 AM at 1022 PATIENT NAME: DONALD BAILEY ACCOUNT #: [id number]
--- NOTE | 2022-07-23 15:14 | RAD REPORT ---
EXAM DESCRIPTION: RADChest Single View07/23/2022 3:01 pm CLINICAL HISTORY: DYSPNEA COMPARISON: Chest Single View dated 07/19/2022; Chest Single View dated 06/20/2022; Chest Single View da pete 04/24/2018; Chest Single View dated 09/17/2015 TECHNIQUE: Portable AP view of the chest. FINDINGS: Progressive diffuse opacification in the right hemithorax and left base, could relate to p rogressive airspace opacification or increasing layering effusion components. No pneumothorax. Stable cardiomegaly, and bilateral perihilar interstitial prominence and fluffy airspace opacities. The car diomediastinal contours are unchanged, with moderate cardiomegaly. IMPRESSION: Picture of suspected pulmonary edema with progressive opacification particularly in the right hemithorax, which could relate to worsening edema or atelectasis, or increasing effusion.
[2022-07-23 16:05] LABS: Absolute Lymphocytes (CBC) 1.8 K/uL (0.7-4.9); Hematocrit 32.4 % (39.6-49.0); Lymphocytes % 40.2 % (15.3-44.8); MCV 88.7 fL (80-100); MPV 7.7 fL (7.6-11.3); RBC Red Blood Cell Count 3.65 M/uL (4.33-5.43)
[2022-07-23 16:16] LABS: Protime INR 1.13
[2022-07-23 16:21] LABS: Potassium 3.4 mEq/L (3.5-5.1); Troponin High Sensitivity 50.9 pg/mL (<58.9)
--- NOTE | 2022-07-23 17:39 | RAD REPORT ---
EXAM DESCRIPTION: CT - Chest For Pe Angio - 07/23/2022 5:19 pm CLINICAL HISTORY: DYSPNEA COMPARISON: Chest Single View dated 07/23/2022 TECHNIQUE: Thin axial CT images of the chest were obtained following administration of 100 mL mL Iso valeri 370 IV contrast. Multiplanar reconstructions, and maximum intensity projection reconstructions we re generated and reviewed. Exam utilizes a protocol for optimal evaluation of pulmonary arterial tree . All CT scans are performed using dose optimization technique as appropriate and may include automated exposure control or mA/KV adjustment according to patient size. FINDINGS: Pulmonary arteries are normal. No emboli or other suspicious finding. No acute or signific ant aorta findings. No mass or infiltrate in the lung parenchyma. Right moderate and left small pleural effusion. Central interstitial prominence and scattered ground-glass opacities more confluent in the dependent left lo wer lobe. Segmental dependent atelectatic changes as well. No pneumothorax. At least moderate cardiomegaly. [id number]-[id number] pericardial effusion. Non opacification of the left lower pulmonary vein, of indeterminate significance. No abnormal mediastinal or hilar masses or lymphadenopathy seen. No chest wall mass or abnormal axill iary lymphadenopathy. Diffuse body wall edema IMPRESSION: No evidence of acute central pulmonary emboli. Cardiomegaly, mild to moderate pericardial effusion, bilateral pleural effusions, and central ground- glass opacification with interstitial thickening, findings which may indicate cardiogenic pulmonary e eda/ decompensated CHF. Please correlate clinically.
--- NOTE | 2022-07-23 17:44 | ER ---
Nurse's Notes [facility] Name: Jonnie De La Rosa Age: 52 yrs Sex: Male : 1970 Arrival Date: 07/23/2022 Time: 14:05 Bed 24 Private MD: Diagnosis: Influenza due to other identified influenza virus with other respiratory manifestations;Pleural effusion, not elsewhere classified;Acute pulmonary edema Presentation: 07/23 14:08 Chief complaint: EMS states: pt c/o difficulty breathing, EMS reports SpO2 91% on RA at 3 home and left upper sided wheezes, EMS gave A\T\A treatment en route and applied 2L O2 NC, pt states symptoms improved. Pt started antibiotics yesterday which were prescribed at last ED visit here. Coronavirus screen: Vaccine status: Patient reports receiving the 2nd dose of the covid vaccine. Ebola Screen: No symptoms or risks identified at this time. Initial Sepsis Screen: Does the patient meet any 2 criteria? No. Patient's initial sepsis screen is negative. Does the patient have a suspected source of infection? No. Patient's initial sepsis screen is negative. Risk Assessment: Do you want to hurt yourself or someone else? Patient reports no desire to harm self or others. Onset of symptoms was July 23, 2022. 14:08 Method Of Arrival: EMS: [place] [id number] 14:08 Acuity: BAO 3 eh3 Triage Assessment: 14:08 General: Appears in no apparent distress. comfortable, Behavior is calm, cooperative, eh3 appropriate for age. Pain: Denies pain. EENT: No deficits noted. Neuro: Level of Consciousness is awake, alert, obeys commands, Oriented to person, place, time, situation. Cardiovascular: Capillary refill < 3 seconds Patient's skin is warm and dry. Respiratory: Airway is patent Respiratory effort is even, unlabored, Respiratory pattern is regular, symmetrical, Breath sounds with wheezes in left upper lobe. GI: Abdomen is round non-distended. : No signs and/or symptoms were reported regarding the genitourinary system. Derm: Skin is pink, warm \T\ dry. Musculoskeletal: No signs and/or symptoms reported regarding the musculoskeletal system. Historical: - Allergies: 14:08 shellfish derived; eh3 - Home Meds: 14:08 Amitriptyline Oral once daily [Active]; atorvastatin 20 mg Oral tab 1 tab once daily eh3 [Active]; gabapentin 800 mg Oral tab 1 tab 4 times a day [Active]; levemir 40 units BID 40 40 unit twice a day [Active]; metoprolol tartrate 37.5 mg Oral tab 1 tab once daily [Active]; - PMHx: 14:08 back sx, fx vertebre; Diabetes - IDDM; Hypertension; neuropathy; eh3 14:08 stroke; left sided deficit (2020); eh3 - Immunization history:: Adult Immunizations up to date. - Social history:: Smoking status: unknown. - Family history:: not pertinent. - Hospitalizations: : No recent hospitalization is reported. Screenin:08 [facility] ED Fall Risk Assessment (Adult) Score/Fall Risk Level 0 - 2 = Low Risk. Abuse eh3 screen: Denies threats or abuse. Denies injuries from another. Nutritional screening: No deficits noted. Tuberculosis screening: No symptoms or risk factors identified. Assessment: 14:08 Reassessment: No changes from previously documented assessment. See triage assessment. eh3 15:00 Reassessment: Patient appears in no apparent distress at this time. Patient and/or 3 family updated on plan of care and expected duration. Pain level reassessed. Patient is alert, oriented x 3, equal unlabored respirations, skin warm/dry/pink. 16:00 Reassessment: Patient appears in no apparent distress at this time. Patient and/or 3 family updated on plan of care and expected duration. Pain level reassessed. Patient is alert, oriented x 3, equal unlabored respirations, skin warm/dry/pink. 17:00 Reassessment: Patient appears in no apparent distress at this time. Patient and/or 3 family updated on plan of care and expected duration. Pain level reassessed. Patient is alert, oriented x 3, equal unlabored respirations, skin warm/dry/pink. 18:00 Reassessment: Patient appears in no apparent distress at this time. Patient and/or 3 family updated on plan of care and expected duration. Pain level reassessed. Patient is alert, oriented x 3, equal unlabored respirations, skin warm/dry/pink. Vital Signs: 14:08 BP 144 / 95; Pulse 75; Resp 18; Temp 98.1(O); Pulse Ox 99% on 2 lpm NC; Weight 108.86 eh3 kg; Height 6 ft. 0 in. ; 15:00 BP 155 / 122; Pulse 72; Resp 14; Pulse Ox 98% on 2 lpm NC; eh3 16:00 BP 155 / 92; Pulse 72; Resp 13; Pulse Ox 98% on 2 lpm NC; eh3 17:00 BP 148 / 86; Pulse 71; Resp 13; Pulse Ox 99% on 2 lpm NC; eh3 18:00 BP 168 / 91; Pulse 81; Resp 18; Pulse Ox 98% on R/A; eh3 14:08 Body Mass Index 32.55 (108.86 kg, 182.88 cm) eh3 ED Course: 14:08 Patient arrived in ED. rn 14:08 Jason Webb MD is Attending Physician. rn 14:08 Patient has correct armband on for positive identification. Placed in gown. Bed in low eh3 position. Call light in reach. Side rails up X2. Client placed on continuous cardiac and pulse oximetry monitoring. NIBP monitoring applied. Door closed. Noise minimized. Warm blanket given. 14:28 Radiology exam delayed due to IV insertion attempt and/or patient not having jg10 appropriate IV at this time. 14:31 Devora Mckeon, BRY is Primary Nurse. eh3 15:02 XRAY CXR (1 view) In Process Unspecified. EDMS 15:20 Missed attempt(s): 20 gauge in right antecubital area. Bleeding controlled, band aid eh3 applied, catheter tip intact. 17:19 Triage completed. eh3 17:21 CT Chest For PE Angio In Process Unspecified. EDMS 17:43 Dilan Salcedo MD is Hospitalizing Provider. rn 17:49 Gonzalez Morse MD is Hospitalizing Provider. rn Administered Medications: 17:45 Drug: Furosemide IVP 40 mg Route: IVP; Site: right wrist; eh3 18:45 Follow up: Response: No adverse reaction 3 Outcome: 17:44 Decision to Hospitalize by Provider. rn 07/24 12:51 Patient left the ED. Signatures: Dispatcher [employer] EDMS Jason Webb MD MD rn Smirch, Shelby, RN RN Devora Mckeon RN RN 3 Jessica Ventura [email or web address] Corrections: (The following items were deleted from the chart) 07/23 17:16 15:27 BP 144 / 95; Pulse 75bpm; Resp 18bpm; Pulse Ox 99% RA; [facility] 17: 15:27 BP 144 / 95; Pulse 75bpm; Resp 18bpm; Pulse Ox 99% 2 lpm Nasal Cannula; 3 3 : 14:08 BP 144 / 95; Pulse 75bpm; Resp 18bpm; Pulse Ox 99% 2 lpm Nasal Cannula; [facility] 17: 14:08 BP 144 / 95; Pulse 75bpm; Resp 18bpm; Pulse Ox 99% 2 lpm Nasal Cannula; 108.86 3 kg; Height 6 ft. 0 in.; BMI: 32.5; [facility] 14:08 PMHx: stroke; [facility]
--- NOTE | 2022-07-23 17:44 | EDPHYS ---
Physician Documentation [facility] Name: Jonnie De La Rosa Age: 52 yrs Sex: Male : 1970 Arrival Date: 07/23/2022 Time: 14:05 Bed 24 Private MD: ED Physician Jason Webb HPI: 07/23 14:16 This 52 yrs old Black Male presents to ER via Unassigned with complaints of sob. rn 14:16 The patient has shortness of breath at rest. Onset: The symptoms/episode began/occurred rn today. Duration: The symptoms are continuous. The patient's shortness of breath is aggravated by nothing, is alleviated by application of supplemental oxygen. Associated signs and symptoms: Pertinent positives: non-productive cough, Pertinent negatives: chest pain, hemoptysis. Severity of symptoms: At their worst the symptoms were moderate in the emergency department the symptoms have improved. The patient has not experienced similar symptoms in the past. The patient has been recently seen at the [facility] Emergency Department. Pt seen here 2 days ago, diagnosed with influenza B, discharged from ER, returns with sob that began today, improved with supplemental O2, EMS reports 91% on RA. No chronic lung problems. + previous stroke with hemiplegia.. Historical: - Allergies: 14:08 shellfish derived; eh3 - Home Meds: 14:08 Amitriptyline Oral once daily [Active]; atorvastatin 20 mg Oral tab 1 tab once daily eh3 [Active]; gabapentin 800 mg Oral tab 1 tab 4 times a day [Active]; levemir 40 units BID 40 40 unit twice a day [Active]; metoprolol tartrate 37.5 mg Oral tab 1 tab once daily [Active]; - PMHx: 14:08 back sx, fx vertebre; Diabetes - IDDM; Hypertension; neuropathy; eh3 14:08 stroke; left sided deficit (2019); eh3 - Immunization history:: Adult Immunizations up to date. - Social history:: Smoking status: unknown. - Family history:: not pertinent. - Hospitalizations: : No recent hospitalization is reported. ROS: 14:16 Constitutional: Negative for fever, chills, and weight loss, Eyes: Negative for injury, rn pain, redness, and discharge, Neck: Negative for injury, pain, and swelling, Cardiovascular: Negative for chest pain, palpitations, and edema, Respiratory: + cough and sob Abdomen/GI: Negative for abdominal pain, nausea, vomiting, diarrhea, and constipation, MS/Extremity: Negative for injury and deformity, Skin: Negative for injury, rash, and discoloration, Neuro: Negative for headache, numbness, tingling, and seizure. Exam: 14:16 Constitutional: This is a well developed, well nourished patient who is awake, alert, rn and in no acute distress. Head/Face: Normocephalic, atraumatic. ENT: No stridor Cardiovascular: Regular rate and rhythm. No pulse deficits. Respiratory: No increased work of breathing, no retractions or nasal flaring. Abdomen/GI: Soft, non-tender Skin: Warm, dry MS/ Extremity: Pulses equal, no cyanosis. Neuro: Awake and alert, GCS 15 16:58 ECG was reviewed by the Attending Physician. rn Vital Signs: 14:08 BP 144 / 95; Pulse 75; Resp 18; Temp 98.1(O); Pulse Ox 99% on 2 lpm NC; Weight 108.86 eh3 kg; Height 6 ft. 0 in. ; 15:00 BP 155 / 122; Pulse 72; Resp 14; Pulse Ox 98% on 2 lpm NC; eh3 16:00 BP 155 / 92; Pulse 72; Resp 13; Pulse Ox 98% on 2 lpm NC; eh3 17:00 BP 148 / 86; Pulse 71; Resp 13; Pulse Ox 99% on 2 lpm NC; 3 18:00 BP 168 / 91; Pulse 81; Resp 18; Pulse Ox 98% on R/A; eh3 14:08 Body Mass Index 32.55 (108.86 kg, 182.88 cm) [facility] MDM: 14:08 Patient medically screened. rn 17:41 Differential diagnosis: Anemia CHF exacerbation, Myocardial Infarction pneumonia, rn Pneumothorax pulmonary edema, Pulmonary Embolism. Data reviewed: vital signs, nurses notes, lab test result(s), EKG, radiologic studies, CT scan, plain films, and as a result, I will admit patient. Consideration of Admission/Observation Patient was admitted/placed on observation. Escalation of care including admission/observation considered. Independent interpretation of the following test(s) in the Emergency Department X-Ray: My interpretation is CXR images show bilateral pleural effusions per my interpretation. Counseling: I had a detailed discussion with the patient and/or guardian regarding: the historical points, exam findings, and any diagnostic results supporting the discharge/admit diagnosis, lab results, radiology results, the need for further work-up and treatment in the hospital. Response to treatment: the patient's symptoms have mildly improved after treatment, and as a result, I will admit patient. 17:55 Management of patient was discussed with the following: Primary Care Provider: Dr. laeks Morse, will see in AM.. 17:56 ED course: Pt feeling better, laying supine, asking for a cheeseburger. No labored rn breathing. . 07/23 14:09 Order name: BMP; Complete Time: 16:32 rn 07/23 14:09 Order name: Blood Culture Adult (2) rn 07/23 14:09 Order name: CBC with Diff; Complete Time: 16:18 rn 07/23 14:09 Order name: CPK; Complete Time: 16:32 rn 07/23 14:09 Order name: NT PRO-BNP; Complete Time: 16:32 rn 07/23 14:09 Order name: PT-INR; Complete Time: 16:18 rn 07/23 14:09 Order name: Ptt, Activated; Complete Time: 16:18 rn 07/23 14:09 Order name: Troponin HS; Complete Time: 16:32 rn 07/23 20:33 Order name: Glucose, Ancillary Testing EDAL 07/23 22:45 Order name: Troponin High Sensitivity EDAL 07/24 02:46 Order name: CBC with Automated Diff EDAL 07/24 02:55 Order name: Troponin High Sensitivity EDAL 07/24 03:00 Order name: Basic Metabolic Panel EDMS 07/24 03:00 Order name: NT PRO-BNP EDMS 07/24 08:00 Order name: Glucose, Ancillary Testing EDMS 07/24 11:47 Order name: Glucose, Ancillary Testing EDMS 07/23 14:09 Order name: CT Chest For PE Angio; Complete Time: 17:41 rn 07/23 14:09 Order name: XRAY CXR (1 view); Complete Time: 16:18 rn 07/23 14:09 Order name: EKG; Complete Time: 14:10 rn 07/23 14:09 Order name: Cardiac monitoring; Complete Time: 14:31 rn 07/23 14:09 Order name: EKG - Nurse/Tech; Complete Time: 15:36 rn 07/23 14:09 Order name: IV Saline Lock; Complete Time: 16:09 rn 07/23 14:09 Order name: Labs collected and sent; Complete Time: 16:09 rn 07/23 14:09 Order name: O2 Per Protocol; Complete Time: 14:31 rn 07/23 14:09 Order name: O2 Sat Monitoring; Complete Time: 14:31 rn EC:58 Rate is 72 beats/min. Rhythm is regular. QRS [place] is Normal. CA interval is normal. QRS rn interval is normal. QT interval is normal. No Q waves. T waves are Inverted in leads I, aVL, V5, V6. No ST changes noted. Clinical impression: NSR w/ Non-specific ST/T Changes. Interpreted by me. Reviewed by me. Administered Medications: 17:45 Drug: Furosemide IVP 40 mg Route: IVP; Site: right wrist; [facility] 18:45 Follow up: Response: No adverse reaction [facility] Disposition Summary: 07/23/22 17:44 Hospitalization Ordered Hospitalization Status: Inpatient Admission rn Condition: Stable rn Problem: an ongoing problem rn Symptoms: have improved rn Bed/Room Type: Standard rn Provider: Gonzalez Morse(07/23/22 17:49) rn Location: [facility] ER HOLD(07/23/22 19:34) [facility] Room Assignment: ERHOLD-(07/23/22 19:34) 6 Diagnosis - Influenza due to other identified influenza virus with other respiratory rn manifestations - Pleural effusion, not elsewhere classified rn - Acute pulmonary edema rn Forms: - Medication Reconciliation Form rn - SBAR form rn Signatures: Dispatcher [employer] EDJason Mcdonnell MD MD rn Hall, Erin, RN RN [facility] Radha Mora [facility] Corrections: (The following items were deleted from the chart) 17:25 14:08 PMHx: stroke; [place] [id number] 17:49 17:44 Dilan Salcedo rn rn 19:34 17:44 Telemetry/MedSurg (Inpatient) rn 6 19:34 17:44 rn [facility]
[2022-07-23] MEDS ORDERED: FUROSEMIDE 40 MG/4 ML VIAL ONE (17:47)
[2022-07-23] MEDS ORDERED: ONDANSETRON 4 MG/2 ML VIAL IV PRN (19:43)
[2022-07-23] MEDS: OSELTAMIVIR 75 MG CAP PO SCH (20:48)
[2022-07-23 21:00] VITALS: BMI 32.4
[2022-07-23] MEDS: DIVALPROEX DR 250 MG TAB PO SCH ×2 (21:00→22:14)
[2022-07-23] MEDS ORDERED: GLUCAGON 1 MG/VIAL IM PRN (21:00)
[2022-07-23] MEDS ORDERED: ATORVASTATIN 80 MG TAB PO SCH (21:00)
[2022-07-23] MEDS ORDERED: D50W 25 GM/50 ML SYRINGE IV PRN (21:00)
[2022-07-23] MEDS: INSULIN -REGULAR HUMAN 50 UNIT/0.5 ML ML SQ SCH (21:00)
[2022-07-23] MEDS ORDERED: D10W 125 ML IV PRN (21:09)
[2022-07-23] MEDS ORDERED: carvediloL 6.25 MG TAB ONE (21:38)
[2022-07-23] MEDS ORDERED: APIXABAN 5 MG TABLET ONE (21:38)
[2022-07-23] MEDS ORDERED: ATORVASTATIN 40 MG TAB ONE (21:39)
[2022-07-23] MEDS ORDERED: DIVALPROEX DR 250 MG TAB PO ONE (21:39)
[2022-07-23] MEDS: APIXABAN 5 MG TABLET PO SCH (22:14)
[2022-07-23] MEDS: carvediloL 6.25 MG TAB PO SCH (22:14)
[2022-07-23] MEDS ORDERED: GABAPENTIN 400 MG CAP ONE (22:31)
[2022-07-23] MEDS: GABAPENTIN 400 MG CAP PO SCH (22:33)
[2022-07-24 02:35] LABS: Hematocrit 41.7 % (39.6-49.0); MCV 89.9 fL (80-100); RBC Red Blood Cell Count 4.64 M/uL (4.33-5.43)
[2022-07-24 02:36] LABS: Absolute Lymphocytes (CBC) 2.2 K/uL (0.7-4.9); Lymphocytes % 14.9 % (15.3-44.8); MPV 9.3 fL (7.6-11.3)
[2022-07-24 02:53] LABS: Potassium 3.8 mEq/L (3.5-5.1)
[2022-07-24] MEDS ORDERED: FUROSEMIDE 40 MG/4 ML VIAL ONE ×2 (05:29→08:14)
[2022-07-24] MEDS: FUROSEMIDE 40 MG/4 ML VIAL IV SCH ×3 (05:56→08:27)
[2022-07-24] MEDS: INSULIN -REGULAR HUMAN 50 UNIT/0.5 ML ML SQ SCH ×2 (07:30→11:30)
[2022-07-24] MEDS ORDERED: APIXABAN 5 MG TABLET ONE (08:14)
[2022-07-24] MEDS ORDERED: carvediloL 6.25 MG TAB ONE (08:14)
[2022-07-24] MEDS: GABAPENTIN 400 MG CAP PO SCH (08:24)
[2022-07-24] MEDS: carvediloL 6.25 MG TAB PO SCH (08:24)
[2022-07-24] MEDS: APIXABAN 5 MG TABLET PO SCH (08:24)
[2022-07-24] MEDS: OSELTAMIVIR 75 MG CAP PO SCH (08:24)
[2022-07-24] MEDS ORDERED: GABAPENTIN 400 MG CAP ONE (08:24)
[2022-07-24] MEDS ORDERED: OSELTAMIVIR 75 MG CAP PO ONE (08:25)
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
[2022-07-24 13:10] VITALS: TEMP 98.1
[2022-07-24 13:12] VITALS: O2SAT 98
[2022-07-24 13:21] VITALS: BP 168/91
--- NOTE | 2022-07-25 14:52 | EKG ---
Test Date: 2022-07-23 Test Time: 15:34:30 Theater Technician: SANCHEZ MEASUREMENT RESULTS: Intervals: Rate: 72 CO: 152 QRSD: 100 QT: 434 QTc: 475 [place]: P: 50 CO: 152 QRS: 65 T: 181 INTERPRETIVE STATEMENTS: Normal sinus rhythm T wave abnormality, consider inferolateral ischemia Prolonged QT Abnormal ECG Compared to ECG 07/19/2022 18:23:25 T-wave abnormality now present ST (T wave) deviation no longer present Possible ischemia still present Electronically Signed On 07-25-22 14:45:08 CDT by Eric Perez
== END 2022-07-24 12:53 | disposition home or self-care (01) | DRG 195 ==
LOC: ER 14:05 → ERHOLD 17:51
PROVIDERS: ADMIT Internal Medicine; ATTEND Internal Medicine
DX: J11.00 Influenza due to unidentified influenza virus with unspecified type of pneumonia (principal); E87.70 Fluid overload, unspecified; I10 Essential (primary) hypertension; E11.40 Type 2 diabetes mellitus with diabetic neuropathy, unspecified; I69.30 Unspecified sequelae of cerebral infarction; Z59.00 Homelessness unspecified; Z79.82 Long term (current) use of aspirin; Z79.4 Long term (current) use of insulin; Z79.01 Long term (current) use of anticoagulants; Z79.899 Other long term (current) drug therapy; Z91.013 Allergy to seafood; Z87.891 Personal history of nicotine dependence; Z86.14 Personal history of Methicillin resistant Staphylococcus aureus infection; Z83.3 Family history of diabetes mellitus
CPT/HCPCS: 36415; 71045; 71275; 80048; 82550; 82947; 83880; 84484; 85025; 85610; 85730; 87040; 93005; 94760; 96374; 99284; J1940; Q9967

== ENCOUNTER 2022-08-22 19:53 | Inpatient (IN) | payer OTHER ==
--- OUTSIDE RECORDS SUMMARY | 2022-08-22 19:57 | XMS REPORT | Continuity of Care Document ---
:1970 Author Organization [facility] t Address [address] [place] [address] Care Team Providers Name Role Phone Asked, No Pcp Primary Care Physician Unavailable Payers Payer Name Policy Type Policy Number Effective Date Expiration Date S ource Problems Condition Condition Condition Status Onset Resolution Last Treating Co mments Source Name Details Category Date Date Treatment Clinician Date Central Central Disease Active [facility] Allergies, Adverse Reactions, Alerts Allergy Allergy Status Severity Reaction(s) Onset Inactive Treating Comm ents Source Name Type Date Date Clinician No Known DA Active [facility] Allergie 06-02 [facility] 00:00: [address] NO KNOWN Allergy Active [facility] Family History Family Member Diagnosis Comments Start Date Stop Date Source Natural mother Diabetes [facility] Natural mother Hypertension [facility] Natural sister Heart disease [facility] Natural father Heart disease [facility] Social History Social Habit Start Date Stop Date Quantity Comments Source Gender identity [facility] Sexual orientation Method ist [facility] History of tobacco Cigarette Smoker GAVINO [...] Stop Date Source Tobacco smoking consumption Meth [facility] unknown Smokes tobacco daily 2015-09-18 00:00:00 [facility] Medications Ordered Filled Start Stop Current Ordering [...] r injection times daily before meals. ascorbic 2016- Yes 500mg QD Take [address] [facility] [address] Acid 8-11 capsule [facility] (VITAMIN C) 00:00: (500 mg Med ical 500 mg CpER 00 total) by Bill ter SR capsule mouth daily. pantoprazol 2015-0 Yes 40mg QD Take [address] [facility] [...] Clinicians Facility Department ID 2021-02-25 2021-02-25 Emergency [facility] Tami [id number] [address] [place] [address] 00:00:00 00:00:[address] Results Test Description Test Time Test Comments Results Result Comments Source GLUCOSE BEDSIDE TESTING 2018-06-24 09:18:00 Test Item Value Reference Range Interpretation Comme nts GLUCOSE BEDSIDE TESTING (test code = GLUBED) 171 MG/DL 60-99 H GLUCOSE BEDSIDE [id number] 15:01:00 Test Item Value Reference Range Interpretation Comments GLUCOSE BEDSIDE TESTING (test code 170 MG/DL 60-99 H = GLUBED) GLUCOSE BEDSIDE [id number] 13:38:00 Test Item Value Reference Range Interpretation Comments GLUCOSE BEDSIDE TESTING (test code 185 MG/DL 60-99 H = GLUBED) Notes Date/Time Note Provider Source 2018-06-18 18:06:00-00:00 [id number] [place] [address] PATIENT NAME: DONALD BAILEY ADMIT DATE: ACCOUNT NO: [id number] ROOM NO: AGE: 48 REPORT TYPE: OPERATIVE REPORT SEX: M ADMITTING PHYSICIAN: ATTENDING PHYSICIAN:Hilario Arce MD OPERATION DATE: 06/18/2018 PREOPERATIVE DIAGNOSIS: Open wounds, left and up per back. POSTOPERATIVE DIAGNOSIS: Open wounds, left and u pper back. PROCEDURE: 1. Excision and fasciocutaneous flap closure of left lower back wound. 2. Excision and fasciocutaneous flap closure of upper back wound. SURGEON: Hilario Arce MD ROSIN BARREL FILLER: ANESTHESIA: General. 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 Micki macedo had undergone previous radical debridement of the wounds and been left with large open wounds on h is left lower back and flank. He had been undergoing wound care and an tibiotic treatment at [facility]. The wounds were now clean [...] advanced toward one another to approximate. A 15-Tajik round drain was left under the flaps [...] PATIENT NAME: DONALD BAILEY ACCOUNT #: [id number] turned to the upper back wound. The [...] By: Hilario Arce MD WT: OP:DENICE/TIMOTEO/VANGIE Conf#: [id number]/DID#: [id number] Authenticated by Hilario Arce MD On 019 10:21:50 AM at 1022 PATIENT NAME: DONALD BAILEY ACCOUNT #: [id number]
[2022-08-22 21:19] LABS: Absolute Lymphocytes (CBC) 0.6 K/uL (0.7-4.9); Hematocrit 34.8 % (39.6-49.0); Lymphocytes % 17.1 % (15.3-44.8); MCV 87.9 fL (80-100); MPV 7.4 fL (7.6-11.3); RBC Red Blood Cell Count 3.96 M/uL (4.33-5.43)
[2022-08-22] MEDS ORDERED: ALBUTEROL 2.5 MG/3 ML NEB SOL ONE (21:20)
[2022-08-22] MEDS ORDERED: IPRATROPIUM BROM 0.5MG/2.5ML ONE (21:20)
--- NOTE | 2022-08-22 21:20 | RAD REPORT ---
EXAM DESCRIPTION: RADChest Single View08/22/2022 8:48 pm CLINICAL HISTORY: DYSPNEA COMPARISON: Chest Single View dated 07/23/2022; Chest Single View dated 07/19/2022; Chest Single View da pete 06/20/2022; Chest Single View dated 04/24/2018; Chest For Pe Angio dated 07/23/2022 TECHNIQUE: Portable AP view of the chest. FINDINGS: Stable cardiomegaly and patchy central opacities with interstitial prominence. Stable bila teral pleural effusions. No pneumothorax. Mediastinal contours are unchanged. IMPRESSION: Stable findings suggestive of pulmonary edema. Underlying pneumonia cannot be entirely e xcluded.
[2022-08-22 21:28] LABS: ALT/SGPT 11 U/L (16-61); AST/SGOT 10 U/L (15-37); Albumin 1.9 g/dL (3.4-5.0); Alkaline Phosphatase 74 U/L (45-117); BUN Blood Urea Nitrogen 13 mg/dL (7-18); Bicarbonate 32 mEq/L (21-32); Bilirubin Total 0.3 mg/dL (0.2-1.0); Glomerular Filtration Rate 114 ml/min (=/>90); Glucose Level 133 mg/dL (74-106); Magnesium 2.1 mg/dL (1.6-2.4); NT PRO-BNP 11905 pg/mL (<125); Potassium 3.7 mEq/L (3.5-5.1); Protein, Total 6.1 g/dL (6.4-8.2); Sodium Level 141 mEq/L (136-145); Troponin High Sensitivity 54.2 pg/mL (<58.9)
[2022-08-22 21:29] LABS: Bilirubin Direct < 0.1 mg/dL (0-0.2)
[2022-08-22 21:30] LABS: Bilirubin Indirect, Calculated ND mg/dL (0.2-0.8)
--- NOTE | 2022-08-22 21:48 | ER ---
Nurse's Notes [facility] Name: Jonnie De La Rosa Age: 52 yrs Sex: Male : 1970 Arrival Date: 08/22/2022 Time: 19:53 Bed 8 Private MD: Diagnosis: Acute respiratory failure with hypoxia;Pulmonary Edema Presentation: 08/22 20:20 Chief complaint: Patient states: SOB,onset today. EMS stated patient's 02 saturation pf1 on RA was 52%. EMS stated gave patient Solumedrol 125mg and A\T\A tx. 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 Coronavirus screen: Vaccine status: Patient reports being unvaccinated. Client denies travel out of the [place] in the last 14 days. Client presents with at least one sign or symptom that may indicate coronavirus-19. Ebola Screen: Patient negative for fever greater than or equal to 101.5 degrees Fahrenheit, and additional compatible Ebola Virus Disease symptoms. Initial Sepsis Screen: Does the patient meet any 2 criteria? No. Patient's initial sepsis screen is negative. Does the patient have a suspected source of infection? No. Patient's initial sepsis screen is negative. Risk Assessment: Do you want to hurt yourself or someone else? Patient reports no desire to harm self or others. 20:20 Method Of Arrival: EMS: [facility] pf1 20:20 Acuity: BAO 3 pf1 Triage Assessment: 22:22 General: Behavior is. pf1 Historical: - Allergies: 22:20 shellfish derived; pf1 - PMHx: 22:20 back sx, fx vertebre; Diabetes - IDDM; Hypertension; neuropathy; stroke; left sided pf1 deficit (2019); - PSHx: 22:20 neck surgery; back surgery; umbilical hernia; pf1 - Immunization history:: Client reports having NOT received the Covid vaccine. Last tetanus immunization: > 10 years ago Flu vaccine is not up to date. - Family history:: not pertinent. - Social history:: Smoking status: Patient denies any tobacco usage or history of. Patient/guardian denies using alcohol, street drugs. Screenin:25 [facility] ED Fall Risk Assessment (Adult) History of falling in the last 3 months, pf1 including since admission No falls in past 3 months (0 pts) Confusion or Disorientation No (0 pts) Intoxicated or Sedated No (0 pts) Impaired Gait Yes (1 pt) Mobility Assist Device Used Yes (1 pt) Altered Elimination Yes (1 pt) Score/Fall Risk Level 3 or more points = High Risk Oriented to surroundings, Maintained a safe environment, Educated pt \T\ family on fall prevention, incl call for assistance when getting out of bed, Assessed \T\ reinforced patient's understanding of fall precautions, Provided non-skid footwear, Hourly rounding (assess needs \T\ fall precautionary measures) done, Used ambulatory aids as needed (educated on \T\ assisted with), Used gait belt as appropriate Implemented a Fall Risk Plan of Care, Offered frequent toileting (1:1 observation), Remained with patient while ambulating, Utilized family, sitter, or virtual webbing weaver as indicated. Abuse screen: Denies threats or abuse. Nutritional screening: No deficits noted. Tuberculosis screening: No symptoms or risk factors identified. Assessment: 20:25 General: Appears in no apparent distress. comfortable, obese, well groomed, well pf1 developed. Pain: Denies pain. Neuro: Level of Consciousness is awake, alert, obeys commands, Oriented to person, place, time, situation. Cardiovascular: Reports shortness of breath, Capillary refill < 3 seconds Patient's skin is warm and dry. Respiratory: Reports shortness of breath at rest Airway is patent Respiratory effort is even, unlabored, Respiratory pattern is regular, symmetrical, Breath sounds with rhonchi bilaterally. Breath sounds with wheezes. GI: Abdomen is round non-distended, Bowel sounds present X 4 quads. : No deficits noted. No signs and/or symptoms were reported regarding the genitourinary system. EENT: No deficits noted. No signs and/or symptoms were reported regarding the EENT system. Derm: No deficits noted. No signs and/or symptoms reported regarding the dermatologic system. Musculoskeletal: Reports patient stated is paralysed from CVA and neck fx. 21:30 Reassessment: Patient appears in no apparent distress at this time. Patient and/or pf1 family updated on plan of care and expected duration. Pain level reassessed. Patient is alert, oriented x 3, equal unlabored respirations, skin warm/dry/pink. Patient states symptoms have improved. Vital Signs: 20:20 BP 159 / 114; Pulse 88; Resp 18; Temp 98.8; Pulse Ox 86% on R/A; Weight 114.5 kg; pf1 Height 6 ft. 3 in. ; 21:00 BP 170 / 102; Pulse 79; Resp 15; Pulse Ox 94% on 2 lpm NC; Pain 0/10; pf1 22:00 BP 165 / 97; Pulse 82; Resp 18; Pulse Ox 95% on 2 lpm NC; Pain 0/10; pf1 20:20 Body Mass Index 31.55 (114.50 kg, 190.5 cm) pf1 21:00 Pain Scale: Adult pf1 22:00 Pain Scale: Adult pf1 ED Course: 20:01 Patient arrived in ED. kl 20:01 Thierry Bowman MD is Attending Physician. rt 20:25 Triage completed. pf1 20:25 Arm band placed on. pf1 20:25 Patient has correct armband on for positive identification. Bed in low position. Call pf1 light in reach. Side rails up X2. 20:27 Maintain EMS IV. Dressing intact. Good blood return noted. Site clean \T\ dry. Gauge \T\ pf 1 site: 22gauge to right hand. 20:49 XRAY Chest (1 view) In Process Unspecified. EDMS 21:16 Kelly De La Rosa RN is Primary Nurse. pf1 21:47 Gonzalez Morse MD is Hospitalizing Provider. rt 22:19 No provider procedures requiring assistance completed. Patient admitted, IV remains in pf1 place. 22:58 Troponin High Sensitivity Sent. pf1 Administered Medications: 21:00 Drug: DuoNeb Nebulize (3:1) (2.5 mg - 0.5 mg) 3 ml Route: Nebulizer; pf1 22:00 Follow up: Response: No adverse reaction; Marked relief of symptoms pf1 22:15 Drug: Furosemide IVP 40 mg Route: IVP; Site: right hand; pf1 22:17 Follow up: Response: No adverse reaction; Marked relief of symptoms pf1 Medication: 22:22 VIS not applicable for this client. pf1 Outcome: 21:47 Decision to Hospitalize by Provider. rt 22:42 Admitted to Med/surg accompanied by carrie, via stretcher, room 217, with chart, Report pf1 called to BRY Iglesias 22:42 Condition: stable 22:42 Instructed on the need for admit, Demonstrated understanding of instructions. 22:52 Patient left the ED. pf1 Signatures: Dispatcher [employer] Imani Villa RN RN kl [place], Ryan, MD MD rt Finley, Pamala, RN RN pf1
--- NOTE | 2022-08-22 21:48 | EDPHYS ---
Physician Documentation [facility] Name: Jonnie De La Rosa Age: 52 yrs Sex: Male : 1970 Arrival Date: 08/22/2022 Time: 19:53 Bed 8 Private MD: ED Physician Thierry Bowman HPI: 08/22 20:21 This 52 yrs old Black Male presents to ER via Unassigned with complaints of Shortness rt of breath. 20:21 Patient with prior paralysis of the left arm, bilateral lower extremities presents to rt the ED with dyspnea starting today. The patient states that he woke up this way, denies aggravating alleviating factors. EMS was called, room air saturation was found to be 52%, corrected with supplemental O2. He was given nebulizer treatments, Solu-Medrol prior to arrival. Denies other acute complaints at this time. Symptoms are moderate in severity, no other aggravating alleviating factors.. Historical: - Allergies: 22:20 shellfish derived; pf1 - PMHx: 22:20 back sx, fx vertebre; Diabetes - IDDM; Hypertension; neuropathy; stroke; left sided pf1 deficit (2019); - PSHx: 22:20 neck surgery; back surgery; umbilical hernia; pf1 - Immunization history:: Client reports having NOT received the Covid vaccine. Last tetanus immunization: > 10 years ago Flu vaccine is not up to date. - Family history:: not pertinent. - Social history:: Smoking status: Patient denies any tobacco usage or history of. Patient/guardian denies using alcohol, street drugs. ROS: 20:21 Constitutional: Negative for fever, chills, and weight loss, Cardiovascular: Negative rt for chest pain, palpitations, and edema, Abdomen/GI: Negative for abdominal pain, nausea, vomiting, diarrhea, and constipation, Skin: Negative for injury, rash, and discoloration, Psych: Negative for depression, anxiety, suicide ideation, homicidal ideation, and hallucinations. 20:21 Respiratory: Positive for shortness of breath, Negative for cough. Exam: 20:22 Constitutional: This is a well developed, well nourished patient who is awake, alert, rt and in no acute distress. Head/Face: Normocephalic, atraumatic. Chest/axilla: Normal chest wall appearance and motion. Nontender with no deformity. No lesions are appreciated. Respiratory: Lungs have equal breath sounds bilaterally, clear to auscultation and percussion. No rales, rhonchi or wheezes noted. No increased work of breathing, no retractions or nasal flaring. Abdomen/GI: Soft, non-tender, with normal bowel sounds. No distension or tympany. No guarding or rebound. No evidence of tenderness throughout. Skin: Warm, dry with normal turgor. Normal color with no rashes, no lesions, and no evidence of cellulitis. Psych: Awake, alert, with orientation to person, place and time. Behavior, mood, and affect are within normal limits. 20:22 Respiratory: Coarse breath sounds with wheezes heard on all lung cruz, no respiratory distress. 20:36 ECG was reviewed by the Attending Physician. rt Vital Signs: 20:20 BP 159 / 114; Pulse 88; Resp 18; Temp 98.8; Pulse Ox 86% on R/A; Weight 114.5 kg; pf1 Height 6 ft. 3 in. ; 21:00 BP 170 / 102; Pulse 79; Resp 15; Pulse Ox 94% on 2 lpm NC; Pain 0/10; pf1 22:00 BP 165 / 97; Pulse 82; Resp 18; Pulse Ox 95% on 2 lpm NC; Pain 0/10; pf1 20:20 Body Mass Index 31.55 (114.50 kg, 190.5 cm) pf1 21:00 Pain Scale: Adult pf1 22:00 Pain Scale: Adult pf1 MDM: 20:08 Patient medically screened. rt 22:08 Differential diagnosis: Chronic Obstructive Pulmonary Disease Myocardial Infarction rt pneumonia, Pneumothorax pulmonary edema, Pulmonary Embolism. Data reviewed: vital signs, nurses notes, lab test result(s), EKG, radiologic studies. Consideration of Admission/Observation Patient was admitted/placed on observation. Management of patient was discussed with the following: Primary Care Provider: Agrees to admit the patient. I considered the following discharge prescriptions or medication management in the emergency department Medications were administered in the Emergency Department. See MAR. Independent interpretation of the following test(s) in the Emergency Department X-Ray: My interpretation is Edema seen on my interpretation of x-ray image. Care significantly affected by the following chronic conditions: Paraplegia. Counseling: I had a detailed discussion with the patient and/or guardian regarding: the historical points, exam findings, and any diagnostic results supporting the discharge/admit diagnosis, lab results, radiology results, the need for further work-up and treatment in the hospital. Response to treatment: the patient's symptoms have markedly improved after treatment. 08/22 20:14 Order name: Basic Metabolic Panel; Complete Time: 21:30 rt 08/22 20:14 Order name: CBC with Diff; Complete Time: 21:24 rt 08/22 20:14 Order name: LFT's; Complete Time: 21:30 rt 08/22 20:14 Order name: Magnesium; Complete Time: 21:30 rt 08/22 20:14 Order name: NT PRO-BNP; Complete Time: 21:30 rt 08/22 20:14 Order name: Troponin HS; Complete Time: :30 rt 08/22 21:52 Order name: Urinalysis w/ reflexes EDMS 08/22 21:53 Order name: CBC with Automated Diff EDMS 08/22 21:53 Order name: CBC with Automated Diff EDMS 08/22 21:53 Order name: Comprehensive Metabolic Panel EDMS 08/22 21:53 Order name: Comprehensive Metabolic Panel EDMS 08/22 21:53 Order name: Troponin High Sensitivity EDMS 08/22 21:53 Order name: Troponin High Sensitivity EDMS 08/22 21:53 Order name: Troponin High Sensitivity EDMS 08/22 21:53 Order name: Troponin High Sensitivity EDMS 08/22 20:14 Order name: XRAY Chest (1 view); Complete Time: 21:24 rt 08/22 20:14 Order name: EKG; Complete Time: 20:15 rt 08/22 21:52 Order name: Heart Healthy EDMS 08/22 20:14 Order name: Cardiac monitoring; Complete Time: 21:31 rt 08/22 20:14 Order name: EKG - Nurse/Tech; Complete Time: 21:31 rt 08/22 20:14 Order name: IV Saline Lock; Complete Time: 21:31 rt 08/22 20:14 Order name: Labs collected and sent; Complete Time: 21:31 rt 08/22 20:14 Order name: O2 Per Protocol; Complete Time: 21:31 rt 08/22 20:14 Order name: O2 Sat Monitoring; Complete Time: 21:31 rt EC:36 Rate is 83 beats/min. Rhythm is regular, Normal Sinus Rhythm with No ectopy. QRS [place] rt is Normal. TN interval is normal. QRS interval is normal. QT interval is normal. Clinical impression: NSR w/ Non-specific ST/T Changes. Administered Medications: 21:00 Drug: DuoNeb Nebulize (3:1) (2.5 mg - 0.5 mg) 3 ml Route: Nebulizer; pf1 22:00 Follow up: Response: No adverse reaction; Marked relief of symptoms pf1 22:15 Drug: Furosemide IVP 40 mg Route: IVP; Site: right hand; pf1 22:17 Follow up: Response: No adverse reaction; Marked relief of symptoms pf1 Disposition Summary: 08/22/22 21:47 Hospitalization Ordered Hospitalization Status: Inpatient Admission rt Provider: Gonzalez Morse rt [facility] rt Condition: Fair rt Problem: new rt Symptoms: have improved rt Bed/Room Type: Standard rt Room Assignment: 219(08/22/22 21:58) cg Diagnosis - Acute respiratory failure with hypoxia rt - Pulmonary Edema rt Forms: - Medication Reconciliation Form rt - SBAR form rt Signatures: Dispatcher [employer] Gisela Calvillo RN RN cg Thierry Bowman MD MD rt Kelly De La Rosa RN RN pf1 Corrections: (The following items were deleted from the chart) 21:58 21:47 rt cg
[2022-08-22] MEDS ORDERED: FUROSEMIDE 40 MG/4 ML VIAL ONE (22:16)
[2022-08-23 00:01] VITALS: BMI 31.6
[2022-08-23 06:31] LABS: Absolute Lymphocytes (CBC) 0.5 K/uL (0.7-4.9); Hematocrit 33.2 % (39.6-49.0); Lymphocytes % 21.2 % (15.3-44.8); MCV 87.4 fL (80-100); MPV 7.6 fL (7.6-11.3); RBC Red Blood Cell Count 3.79 M/uL (4.33-5.43)
[2022-08-23 06:55] LABS: AST/SGOT 6 U/L (15-37); Albumin 1.8 g/dL (3.4-5.0); Alkaline Phosphatase 70 U/L (45-117); BUN Blood Urea Nitrogen 14 mg/dL (7-18); Bicarbonate 29 mEq/L (21-32); Bilirubin Total 0.2 mg/dL (0.2-1.0); Glomerular Filtration Rate 117 ml/min (=/>90); Glucose Level 157 mg/dL (74-106); Potassium 3.8 mEq/L (3.5-5.1); Protein, Total 5.7 g/dL (6.4-8.2); Sodium Level 142 mEq/L (136-145)
[2022-08-23 07:06] LABS: ALT/SGPT < 10 U/L (16-61)
[2022-08-23 08:37] LABS: Blood Morphology Comment NOT SEEN (NOT SEEN); Platelet Estimate ADEQ; White Blood Cell Scan OK (OK)
[2022-08-23] MEDS ORDERED: D50W 25 GM/50 ML SYRINGE IV PRN (14:28)
[2022-08-23] MEDS ORDERED: GLUCAGON 1 MG/VIAL IM PRN (14:28)
--- NOTE | 2022-08-23 14:34 | P.HP ---
Certification for Inpatient Patient admitted to: Inpatient With expected LOS: >2 Midnights Patient will require the following post-hospital care: Home Health Services Practitioner: I am a practitioner with admitting privileges, knowledge of patient current condition, hospital course, and medical plan of care. Services: Services provided to patient in accordance with Admission requirements found in Title 42 Section 412.3 of the Code of Federal Regulations Patient History Date of Service: 08/23/22 Primary Care Provider: Mini Reason for admission: chf exacerbation History of Present Illness: Patient is a patient of mine. He has a history of hemiplegia and diabetes. He was having difficulty breathing his sister called ems. Was found to be hypoxic at 51%. In the hospital the patient was found to be fluid overloaded. He has had an echo 4 years ago with an EF of73%. Will admit him for chf exacerbation . Allergies shellfish derived Allergy (Verified 07/23/22 23:42) Hives/Rash Home Medications: Gabapentin [Neurontin] 800 mg PO QID 09/06/20 Apixaban [Eliquis] 5 mg PO BID 07/20/22 Aspirin [Aspirin EC 81 MG] 81 mg PO DAILY 07/20/22 Atorvastatin Calcium [Lipitor] 80 mg PO BEDTIME 07/20/22 Divalproex Sodium 250 mg PO BID 07/20/22 Insulin Detemir [Levemir] 35 unit SQ BIDWM 07/20/22 Losartan Potassium [Cozaar] 25 mg PO DAILY 07/20/22 carvediloL [Carvedilol] 6.25 mg PO BID 07/20/22 Azithromycin [Zithromax] 500 mg PO DAILY 5 Days #5 tab 07/21/22 Oseltamivir Phosphate [Tamiflu] 75 mg PO BID 3 Days #6 tab 07/21/22 Albuterol Inhaler [Ventolin Inhaler*] 2 puff IH Q6H PRN 15 Days #30 gr 07/24/22 - Past Medical/Surgical History Has patient received pneumonia vaccine in the past: No Diabetic: Yes -: Diabetes mellitus type 2 -: Hypertension -: Diabetic neuropathy -: Tobacco abuse -: History of MRSA -: History of spinal stenosis/cord compression and [id number] -: Previous I and D's of abscesses in the past Psychosocial/ Personal History: He is currently . Has no children. He has not worked. Patient is homeless - Family History Mother -: Diabetes - Social History Smoking Status: Former smoker Alcohol use: No CD- Drugs: No Caffeine use: Yes Place of Residence: Home Review of Systems 10-point ROS is otherwise unremarkable Respiratory: Shortness of Breath Physical Examination - Vital Signs Temperature: 98.0 F Blood Pressure: 131/63 Pulse: 91 Respirations: 16 Pulse Ox (%): 94 - Physical Exam General: Alert, In no apparent distress HEENT: Atraumatic, PERRLA, Mucous membr. moist/pink, EOMI, Sclerae nonicteric Neck: Supple, 2+ carotid pulse no bruit, No LAD, Without JVD or thyroid abnormality Respiratory: Clear to auscultation bilaterally, Normal air movement Cardiovascular: Regular rate/rhythm, Normal S1 S2 Gastrointestinal: Normal bowel sounds, No tenderness Musculoskeletal: No tenderness Integumentary: No rashes Neurological: Normal gait, Normal speech, Normal strength at 5/5 x4 extr, Normal tone, Normal affect Lymphatics: No axilla or inguinal lymphadenopathy - Studies Laboratory Data (last 24 hrs) 08/22/22 21:00: WBC 3.70 L, Hgb 11.5 L, Hct 34.8 L, Plt Count 205 08/22/22 21:00: Sodium 141, Potassium 3.7, BUN 13, Creatinine 0.65 L, Glucose 133 H, Magnesium 2.1, Total Bilirubin 0.3, AST 10 L, ALT 11 L, Alkaline Phosphatase 74 Assessment and Plan - Problems (Diagnosis) (1) Acute exacerbation of CHF (congestive heart failure) Current Visit: Yes Status: Acute Plan: will keep him on iv lasix. Daily I's and O's. Will need to recheck an echocardiogram Qualifiers: Heart failure type: diastolic Qualified Code(s): I50.33 - Acute on chronic diastolic (congestive) heart failure (2) Diabetes mellitus Onset Date: 09/18/15 Current Visit: No Status: Chronic Plan: check an a1c. Start him on his home dose of levmeir with a sliding scale for coverage. 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 He has home healthcare and home PT as an outpatient (4) Hypertension Onset Date: 09/18/15 Current Visit: No Status: Chronic Plan: continue carvedilol. Will adjust as needed Qualifiers: Hypertension type: primary hypertension Discharge Plan: Home Plan to discharge in: 48 Hours - Advance Directives Does patient have a Living Will: No Does patient have a Durable POA for Healthcare: No - Code Status/Comfort Care Code Status Assessed: Yes Code Status: Full Code Physician Review: Patient Assessed, Agree with Above Assessment and Plan Critical Care: No Time Spent Managing Pts Care (In Minutes): 45
[2022-08-23] MEDS ORDERED: D10W 125 ML IV PRN (14:43)
--- NOTE | 2022-08-23 16:17 | EKG ---
Test Date: 2022-08-22 Test Time: 20:25:34 Analytics Analyst: FRANKIE MEASUREMENT RESULTS: Intervals: Rate: 83 TN: 154 QRSD: 100 QT: 410 QTc: 481 [place]: P: 47 TN: 154 QRS: 45 T: 201 INTERPRETIVE STATEMENTS: Normal sinus rhythm Possible Left atrial enlargement ST & T wave abnormality, consider inferolateral ischemia Prolonged QT Abnormal ECG Compared to ECG 07/23/2022 15:34:30 ST (T wave) deviation now present T-wave abnormality no longer present Possible ischemia still present Electronically Signed On 08-23-22 16:16:25 CDT by Mirza Green
[2022-08-23] MEDS: INSULIN -REGULAR HUMAN 50 UNIT/0.5 ML ML SQ SCH ×2 (16:30→21:00)
[2022-08-23] MEDS: INSULIN GLARGINE 100 UNIT/ML SQ SCH (16:56)
[2022-08-23] MEDS: carvediloL 6.25 MG TAB PO SCH (16:57)
[2022-08-23] MEDS: GABAPENTIN 400 MG CAP PO SCH ×2 (16:57→21:46)
[2022-08-23] MEDS: APIXABAN 5 MG TABLET PO SCH (21:45)
[2022-08-23] MEDS: ATORVASTATIN 80 MG TAB PO SCH (21:45)
[2022-08-23] MEDS: DIVALPROEX DR 250 MG TAB PO SCH (21:46)
[2022-08-24 03:07] LABS: Absolute Lymphocytes (CBC) 2.7 K/uL (0.7-4.9); Hematocrit 30.1 % (39.6-49.0); Lymphocytes % 45.1 % (15.3-44.8); MCV 87.8 fL (80-100); MPV 7.4 fL (7.6-11.3); RBC Red Blood Cell Count 3.43 M/uL (4.33-5.43)
[2022-08-24 03:35] LABS: AST/SGOT 8 U/L (15-37); Albumin 1.6 g/dL (3.4-5.0); Alkaline Phosphatase 63 U/L (45-117); BUN Blood Urea Nitrogen 20 mg/dL (7-18); Bicarbonate 31 mEq/L (21-32); Bilirubin Total 0.1 mg/dL (0.2-1.0); Glomerular Filtration Rate 109 ml/min (=/>90); Glucose Level 80 mg/dL (74-106); Potassium 3.3 mEq/L (3.5-5.1); Sodium Level 140 mEq/L (136-145)
[2022-08-24 03:39] LABS: ALT/SGPT < 10 U/L (16-61)
[2022-08-24] MEDS: INSULIN -REGULAR HUMAN 50 UNIT/0.5 ML ML SQ SCH ×4 (07:30→20:34)
[2022-08-24] MEDS: FUROSEMIDE 40 MG/4 ML VIAL IV SCH (09:08)
[2022-08-24] MEDS: APIXABAN 5 MG TABLET PO SCH ×2 (09:08→20:33)
[2022-08-24] MEDS: ASPIRIN EC 81 MG TAB PO SCH (09:08)
[2022-08-24] MEDS: DIVALPROEX DR 250 MG TAB PO SCH ×2 (09:08→20:33)
[2022-08-24] MEDS: GABAPENTIN 400 MG CAP PO SCH ×4 (09:08→20:33)
[2022-08-24] MEDS: INSULIN GLARGINE 100 UNIT/ML SQ SCH (09:09)
[2022-08-24] MEDS: carvediloL 6.25 MG TAB PO SCH ×2 (09:09→17:11)
[2022-08-24] MEDS: LOSARTAN POTASSIUM 50 MG TABLET PO SCH (09:09)
--- NOTE | 2022-08-24 13:50 | P.PN ---
Subjective Date of Service: 08/24/22 Primary Care Provider: Mini Chief Complaint: chf exacerbation Subjective: No new changes Review of Systems 10-point ROS is otherwise unremarkable Physical Examination - Vital Signs Temperature: 97.1 F Blood Pressure: 139/68 Pulse: 77 Respirations: 16 Pulse Ox (%): 96 - Physical Exam General: Alert, In no apparent distress HEENT: Atraumatic, PERRLA, EOMI Neck: Supple, JVD not distended Respiratory: Clear to auscultation bilaterally, Normal air movement Cardiovascular: Regular rate/rhythm, Normal S1 S2 Gastrointestinal: Normal bowel sounds, No tenderness Musculoskeletal: No tenderness Integumentary: No rashes Neurological: Normal speech, Normal tone, Normal affect Lymphatics: No axilla or inguinal lymphadenopathy Assessment And Plan - Current Problems (Diagnosis) (1) Acute exacerbation of CHF (congestive heart failure) Current Visit: Yes Status: Acute Plan: will keep him on iv lasix. Daily I's and O's. Will need to recheck an echocardiogram 08/24 echo pending tomorrow, Consider entresto for this patient Qualifiers: Heart failure type: diastolic Qualified Code(s): I50.33 - Acute on chronic diastolic (congestive) heart failure (2) Diabetes mellitus Onset Date: 09/18/15 Current Visit: No Status: Chronic Plan: check an a1c. Start him on his home dose of levmeir with a sliding scale for coverage. 7.9 a1c is 5.2 Will start weaning his insulin. 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 He has home healthcare and home PT as an outpatient (4) Hypertension Onset Date: 09/18/15 Current Visit: No Status: Chronic Plan: continue carvedilol. Will adjust as needed Qualifiers: Hypertension type: primary hypertension Discharge Plan: Home Plan to discharge in: 24 Hours - Code Status/Comfort Care Code Status Assessed: No Physician Review: Patient Assessed, Agree with Above Assessment and Plan Critical Care: No Time Spent Managing PTS Care (In Minutes): 20
[2022-08-24] MEDS: ATORVASTATIN 80 MG TAB PO SCH (20:33)
[2022-08-25] MEDS: INSULIN -REGULAR HUMAN 50 UNIT/0.5 ML ML SQ SCH ×4 (07:30→21:00)
[2022-08-25 07:54] LABS: Absolute Lymphocytes (CBC) 2.4 K/uL (0.7-4.9); Hematocrit 31.4 % (39.6-49.0); MCV 88.1 fL (80-100); MPV 7.8 fL (7.6-11.3); RBC Red Blood Cell Count 3.56 M/uL (4.33-5.43)
[2022-08-25] MEDS: carvediloL 6.25 MG TAB PO SCH ×3 (08:00→16:36)
[2022-08-25 08:14] LABS: Albumin 1.5 g/dL (3.4-5.0); Bilirubin Total 0.3 mg/dL (0.2-1.0); Potassium 3.4 mEq/L (3.5-5.1); Protein, Total 4.9 g/dL (6.4-8.2)
[2022-08-25] MEDS: DIVALPROEX DR 250 MG TAB PO SCH ×3 (09:00→20:44)
[2022-08-25] MEDS: ASPIRIN EC 81 MG TAB PO SCH (09:14)
[2022-08-25] MEDS: LOSARTAN POTASSIUM 50 MG TABLET PO SCH (09:14)
[2022-08-25] MEDS: GABAPENTIN 400 MG CAP PO SCH ×4 (09:15→20:42)
[2022-08-25] MEDS: APIXABAN 5 MG TABLET PO SCH ×2 (09:15→20:43)
[2022-08-25] MEDS: INSULIN GLARGINE 100 UNIT/ML SQ SCH (09:17)
[2022-08-25] MEDS: FUROSEMIDE 40 MG/4 ML VIAL IV SCH (10:45)
--- NOTE | 2022-08-25 12:10 | P.PN ---
Subjective Date of Service: 08/25/22 Primary Care Provider: Mini Chief Complaint: chf exacerbation Subjective: No new changes Review of Systems 10-point ROS is otherwise unremarkable Physical Examination - Vital Signs Temperature: 97.4 F Blood Pressure: 163/80 Pulse: 75 Respirations: 18 Pulse Ox (%): 96 - Physical Exam General: Alert, In no apparent distress HEENT: Atraumatic, PERRLA, EOMI Neck: Supple, JVD not distended Respiratory: Clear to auscultation bilaterally, Normal air movement Cardiovascular: Regular rate/rhythm, Normal S1 S2 Gastrointestinal: Normal bowel sounds, No tenderness Musculoskeletal: No tenderness Integumentary: No rashes Neurological: Normal speech, Normal tone, Normal affect Lymphatics: No axilla or inguinal lymphadenopathy Assessment And Plan - Current Problems (Diagnosis) (1) Acute exacerbation of CHF (congestive heart failure) Current Visit: Yes Status: Acute Plan: will keep him on iv lasix. Daily I's and O's. Will need to recheck an echocardiogram 08/24 echo pending tomorrow, Consider entresto for this patient Qualifiers: Heart failure type: diastolic Qualified Code(s): I50.33 - Acute on chronic diastolic (congestive) heart failure (2) Diabetes mellitus Onset Date: 09/18/15 Current Visit: No Status: Chronic Plan: check an a1c. Start him on his home dose of levmeir with a sliding scale for coverage. 7.9 a1c is 5.2 Will start weaning his insulin. Consider starting a glp1 as an outpatient Qualifiers: Diabetes mellitus type: type 2 Diabetes mellitus superintendent terminal insulin use: with superintendent terminal use Diabetes mellitus complication status: with circulatory complication Diabetes mellitus complication detail: with other circulatory complications Qualified Code(s): E11.59 - Type 2 diabetes mellitus with other circulatory complications; Z79.4 - correction (current) use of insulin (3) Hemiplegia affecting left side in left-dominant patient as late effect of cerebrovascular disease Current Visit: No Status: Chronic Plan: Keep him on fall precautions. He has home healthcare and home PT as an outpatient (4) Hypertension Onset Date: 09/18/15 Current Visit: No Status: Chronic Plan: continue carvedilol. Will adjust as needed Qualifiers: Hypertension type: primary hypertension Discharge Plan: Home Plan to discharge in: 24 Hours - Code Status/Comfort Care Code Status Assessed: No Physician Review: Patient Assessed, Agree with Above Assessment and Plan Critical Care: No Time Spent Managing PTS Care (In Minutes): 20
[2022-08-25] MEDS: SACUBITRIL/VALSARTAN 24/26 MG TAB PO SCH (12:30)
[2022-08-25] MEDS: ATORVASTATIN 80 MG TAB PO SCH (20:43)
[2022-08-26] MEDS: GABAPENTIN 400 MG CAP PO SCH (06:41)
--- NOTE | 2022-08-26 06:51 | ECHO ---
HEIGHT: 6 ft 3 in WEIGHT: 252 lb 9.6 oz DATE OF STUDY: 08/25/[address]: Gonzalez Morse MD 2-DIMENSIONAL: YES M.MODE: YES DOPPLER: YES COLOR FLOW: YES TDS: PORTABLE: YES DEFINITY: BUBBLE STUDY: DIAGNOSIS: CONGESTIVE HEART FAILURE CARDIAC HISTORY: CATHERIZATION: SURGERY: PROSTHETIC VALVE: PACEMAKER: MEASUREMENTS (cm) DIASTOLIC (NORMALS) SYSTOLIC (NORMALS) IVSd 2.1 (0.6-1.2) LA Diam 3.8 (1.9-4.0) LVEF 50% LVIDd 3.4 (3.5-5.7) LVIDs 2.5 (2.0-3.5) %FS 24% LVPWd 2.0 (0.6-1.2) Ao Diam 3.5 (2.0-3.7) 2 DIMENSIONAL ASSESSMENT: RIGHT ATRIUM: NORMAL LEFT ATRIUM: NORMAL RIGHT VENTRICLE: NORMAL LEFT VENTRICLE: SEVERE LEFT VENTRICULAR HYPERTROPHY TRICUSPID VALVE: NORMAL MITRAL VALVE: MILD MITRAL REGURGITATION PULMONIC VALVE: NORMAL AORTIC VALVE: NORMAL PERICARDIAL EFFUSION: SMALL AORTIC ROOT: NORMAL LEFT VENTRICULAR WALL MOTION: NORMAL DOPPLER/COLOR FLOW: SEE BELOW COMMENTS: 1. LOW NORMAL LEFT VENTRICULAR EJECTION FRACTION 50-55% 2. SEVERE CONCENTRIC LEFT VENTRICULAR HYPERTROPHY 3. MILD MITRAL REGURGITATION 4. MODERATE DIASTOLIC DYSFUNCTION 5. SMALL PERICARDIAL EFFUSION TECHNOLOGIST: TRACIE RNEE
[2022-08-26 07:22] LABS: Absolute Lymphocytes (CBC) 2.3 K/uL (0.7-4.9); Lymphocytes % 42.4 % (15.3-44.8); MPV 7.7 fL (7.6-11.3); RBC Red Blood Cell Count 3.75 M/uL (4.33-5.43)
[2022-08-26] MEDS: INSULIN -REGULAR HUMAN 50 UNIT/0.5 ML ML SQ SCH (07:30)
[2022-08-26 07:40] LABS: Albumin 1.4 g/dL (3.4-5.0); Bilirubin Total 0.2 mg/dL (0.2-1.0); Potassium 3.5 mEq/L (3.5-5.1)
[2022-08-26 08:33] VITALS: BP 170/81; TEMP 98.6
[2022-08-26] MEDS: carvediloL 6.25 MG TAB PO SCH (08:39)
[2022-08-26] MEDS: ASPIRIN EC 81 MG TAB PO SCH (08:40)
[2022-08-26] MEDS: APIXABAN 5 MG TABLET PO SCH (08:40)
[2022-08-26] MEDS: DIVALPROEX DR 250 MG TAB PO SCH (08:40)
[2022-08-26] MEDS: FUROSEMIDE 40 MG/4 ML VIAL IV SCH (08:40)
[2022-08-26] MEDS: INSULIN GLARGINE 100 UNIT/ML SQ SCH (08:40)
[2022-08-26] MEDS: SACUBITRIL/VALSARTAN 24/26 MG TAB PO SCH (08:42)
--- NOTE | 2022-08-26 08:42 | P.DS ---
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 use: with usp use Diabetes mellitus complication status: with circulatory complication Diabetes mellitus complication detail: with other circulatory complications Qualified Code(s): E11.59 - Type 2 diabetes mellitus with other circulatory complications; Z79.4 - care home (current) use of insulin (3) 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 He has a history of hemiplegia and diabetes. He was having difficulty breathing his sister called ems. Was found to be hypoxic at 51%. In the hospital the patient was found to be fluid overloaded. He has had an echo 4 years ago with an EF of73%. Will admit him for chf exacerbation . Hospital Course: Patient admitted to the hospital for chf exacerbation. He responded to lasix. Had and echo which showed left ventricular hypertrophy and diastolic dysfunction. Have switched his losartan to once daily entresto. Will see about getting him a sleep study as an outpatient . thank you for allowing me to take part in his care. Vital Signs/Physical Exam: Temp Pulse Resp BP Pulse Ox 98.6 F 78 18 170/81 H 98 08/26/22 08:00 08/26/22 08:00 08/26/22 08:00 08/26/22 08:00 08/26/22 08:00 General: Alert, In no apparent distress HEENT: Atraumatic, PERRLA, EOMI Neck: Supple, JVD not distended Respiratory: Clear to auscultation bilaterally, Normal air movement Cardiovascular: Regular rate/rhythm, Normal S1 S2 Gastrointestinal: Normal bowel sounds, No tenderness Musculoskeletal: No tenderness Integumentary: No rashes Neurological: Normal speech, Normal tone, Normal affect Lymphatics: No axilla or inguinal lymphadenopathy Laboratory Data at Discharge: WBC 5.50 thou/uL (4.3-10.9) 08/26/22 07:11 Hgb 10.9 g/dL (13.6-17.9) L 08/26/22 07:11 Hct 33.0 % (39.6-49.0) L 08/26/22 07:11 Plt Count 198 thou/uL (152-406) 08/26/22 07:11 Sodium 139 mEq/L (136-145) 08/26/22 07:11 Potassium 3.5 mEq/L (3.5-5.1) 08/26/22 07:11 BUN 19 mg/dL (7-18) H 08/26/22 07:11 Creatinine 0.65 mg/dL (0.70-1.30) L 08/26/22 07:11 Glucose 138 mg/dL (74-106) H 08/26/22 07:11 Magnesium 2.1 mg/dL (1.6-2.4) 08/22/22 21:00 Total Bilirubin 0.2 mg/dL (0.2-1.0) 08/26/22 07:11 AST 12 U/L (15-37) L 08/26/22 07:11 ALT 15 U/L (16-61) L 08/26/22 07:11 Alkaline Phosphatase 59 U/L (45-117) 08/26/22 07:11 Triglycerides 41 mg/dL (<150) 08/24/22 02:55 Cholesterol 124 mg/dL (<200) 08/24/22 02:55 HDL Cholesterol 48 mg/dL (40-60) 08/24/22 02:55 Cholesterol/HDL Ratio 2.58 08/24/22 02:55 Home Medications: Gabapentin [Neurontin] 800 mg PO QID 09/06/20 Apixaban [Eliquis] 5 mg PO BID 07/20/22 Aspirin [Aspirin EC 81 MG] 81 mg PO DAILY 07/20/22 Atorvastatin Calcium [Lipitor] 80 mg PO BEDTIME 07/20/22 Divalproex Sodium 250 mg PO BID 07/20/22 Insulin Detemir [Levemir] 35 unit SQ BIDWM 07/20/22 Losartan Potassium [Cozaar] 25 mg PO DAILY 07/20/22 carvediloL [Carvedilol] 6.25 mg PO BID 07/20/22 Azithromycin [Zithromax] 500 mg PO DAILY 5 Days #5 tab 07/21/22 Oseltamivir Phosphate [Tamiflu] 75 mg PO BID 3 Days #6 tab 07/21/22 Albuterol Inhaler [Ventolin Inhaler*] 2 puff IH Q6H PRN 15 Days #30 gr 07/24/22 Diet: AHA Activity: Fall precautions Followup: Gonzalez Morse MD [Primary Care Provider] - Physician Review: Patient Assessed, Agree with Above Assessment and Plan Time spent managing pt's care (in minutes): 30
[2022-08-26 09:17] VITALS: O2SAT 98
== END 2022-08-26 11:00 | disposition home or self-care (01) | DRG 291 ==
LOC: ER 19:53 → ERHOLD 21:48 → 2ND 22:10
PROVIDERS: ADMIT Internal Medicine; ATTEND Internal Medicine
DX: I11.0 Hypertensive heart disease with heart failure (principal); I50.33 Acute on chronic diastolic (congestive) heart failure; J96.01 Acute respiratory failure with hypoxia; I69.354 Hemiplegia and hemiparesis following cerebral infarction affecting left non-dominant side; E11.40 Type 2 diabetes mellitus with diabetic neuropathy, unspecified; E11.59 Type 2 diabetes mellitus with other circulatory complications; Z79.4 Long term (current) use of insulin; Z79.01 Long term (current) use of anticoagulants; Z79.82 Long term (current) use of aspirin; Z86.14 Personal history of Methicillin resistant Staphylococcus aureus infection; Z79.899 Other long term (current) drug therapy; Z91.013 Allergy to seafood; Z28.310 Unvaccinated for COVID-19; Z87.891 Personal history of nicotine dependence
CPT/HCPCS: 36415; 71045; 80048; 80053; 80061; 80076; 82947; 83036; 83735; 83880; 84443; 84484; 85025; 93005; 93306; 94640; 96374; 99285; J1815; J1940; J7613; J7644

== ENCOUNTER → 2023-02-11 | Emergency (ER) | payer OTHER ==
[2023-02-11 13:31] LABS: Absolute Lymphocytes (CBC) 2.2 K/uL (0.7-4.9); Hematocrit 26.9 % (39.6-49.0); Lymphocytes % 28.5 % (15.3-44.8); MCV 84.7 fL (80-100); MPV 7.8 fL (7.6-11.3); Platelets 286 thou/uL (152-406); RBC Red Blood Cell Count 3.17 M/uL (4.33-5.43)
[2023-02-11 13:40] LABS: Protime INR 1.23
--- NOTE | 2023-02-11 13:51 | RAD REPORT ---
EXAM DESCRIPTION: RAD - Foot Left 3 View - 02/11/2023 1:42 pm CLINICAL HISTORY: SWELLING COMPARISON: Foot Left 3 View dated 08/30/2020; Foot Left 3 View dated 08/10/2020 FINDINGS: Prominent diffuse osteopenia is seen. Advanced intertarsal degenerative changes are noted. Moderate metatarsus primus adductus with hallux valgus. Small calcaneal spurs. No definitive osteomy elitis findings, however assessment is limited due to the very high degree of osteopenia.
--- NOTE | 2023-02-11 14:16 | ER ---
Nurse's Notes [facility] Name: Jonnie De La Rosa Age: 52 yrs Sex: Male : 1970 Arrival Date: 02/11/2023 Time: 12:29 Bed 5 Private MD: Diagnosis: Pressure ulcers of left foot Presentation: 02/11 12:35 Chief complaint: EMS states: called for a sore on patients right heel that burst. He ko1 has pressure sores to the right great toe, left toes, left heel, left calf and sacrum. Coronavirus screen: At this time, the client does not indicate any symptoms associated with coronavirus-19. Ebola Screen: No symptoms or risks identified at this time. Initial Sepsis Screen: Does the patient meet any 2 criteria? No. Patient's initial sepsis screen is negative. Does the patient have a suspected source of infection? No. Patient's initial sepsis screen is negative. Risk Assessment: Do you want to hurt yourself or someone else? Patient reports no desire to harm self or others. 12:35 Method Of Arrival: EMS: [facility] ko1 12:35 Acuity: BAO 3 ko1 12:35 Onset of symptoms is unknown. ko1 Triage Assessment: 12:35 General: Appears in no apparent distress. comfortable, Behavior is calm, cooperative, ko1 appropriate for age. Pain: Complains of pain in lateral side of left heel. Historical: - Allergies: 12:35 shellfish derived; ko1 - Home Meds: 12:35 Amitriptyline Oral once daily [Active]; atorvastatin 20 mg Oral tab 1 tab once daily ko1 [Active]; gabapentin 800 mg Oral tab 1 tab 4 times a day [Active]; levemir 40 units BID 40 40 unit twice a day [Active]; metoprolol tartrate 37.5 mg Oral tab 1 tab once daily [Active]; - PMHx: 12:35 Diabetes - IDDM; neuropathy; stroke; left sided deficit (2019); Hypertension; ko1 - PSHx: 12:35 back surgery; neck surgery; Umbilical hernia; ko1 - Immunization history:: Adult Immunizations unknown. - Social history:: Smoking status: Patient denies any tobacco usage or history of. - Family history:: not pertinent. - Hospitalizations: : No recent hospitalization is reported. Screenin:45 [facility] ED Fall Risk Assessment (Adult) History of falling in the last 3 months, ko1 including since admission No falls in past 3 months (0 pts) Confusion or Disorientation No (0 pts) Intoxicated or Sedated No (0 pts) Impaired Gait Yes (1 pt) Mobility Assist Device Used Yes (1 pt) Altered Elimination Yes (1 pt) Score/Fall Risk Level 3 or more points = High Risk Oriented to surroundings, Maintained a safe environment, Educated pt \T\ family on fall prevention, incl call for assistance when getting out of bed, Assessed \T\ reinforced patient's understanding of fall precautions, Hourly rounding (assess needs \T\ fall precautionary measures) done, Used ambulatory aids as needed (educated on \T\ assisted with). Abuse screen: Denies threats or abuse. Denies injuries from another. Nutritional screening: No deficits noted. Tuberculosis screening: No symptoms or risk factors identified. Assessment: 12:45 Neuro:. Neuro: Reports left side paralysis from previous stroke. Cardiovascular: No ko1 deficits noted. Respiratory: No deficits noted. GI: No deficits noted. : No deficits noted. EENT: No deficits noted. Derm: Decubitus located on right left heel(s) sacrum, right great toe, all left toes, and on left posterior calf. Musculoskeletal: Reports numbness in extremities. Vital Signs: 12:35 BP 114 / 75; Pulse 86; Resp 15; Temp 98.8(O); Pulse Ox 98% ; ko1 14:23 BP 104 / 59; Pulse 87; Resp 19; Pulse Ox 98% ; ko1 ED Course: 12:33 Patient arrived in ED. ko1 12:34 Jason Webb MD is Attending Physician. rn 12:35 Arm band placed on right wrist. Patient placed in an exam room, on a stretcher, on ko1 director of cardiac rehabilitation, on pulse oximetry, Patient notified of wait time. 12:45 No provider procedures requiring assistance completed. ko1 12:45 Patient has correct armband on for positive identification. Bed in low position. Call ko1 light in reach. Side rails up X2. Provided Education on: na. Pulse ox on. NIBP on. Door closed. Noise minimized. Warm blanket given. 12:49 Neyda Cary, BRY is Primary Nurse. ko1 13:05 Triage completed. ko1 13:20 Missed attempt(s): 20 gauge in left antecubital area. Bleeding controlled, band aid ko1 applied, catheter tip intact. 13:27 Missed attempt(s): 22 gauge in right hand. Bleeding controlled, band aid applied, ph catheter tip intact. Inserted saline lock: 22 gauge in right wrist, using aseptic technique. 13:37 CBC with Diff Sent. ko1 13:37 Basic Metabolic Panel Sent. ko1 13:37 Ptt, Activated Sent. ko1 13:37 Protime (+inr) Sent. ko1 13:44 XRAY Foot LEFT 3 View In Process Unspecified. EDMS 14:14 Gonzalez Morse MD is Referral Physician. rn 14:27 IV discontinued, intact, bleeding controlled, No redness/swelling at site. Pressure ko1 dressing applied. Administered Medications: No medications were administered Medication: 12:45 VIS not applicable for this client. ko1 Outcome: 14:15 Discharge ordered by MD. rn 14:34 Discharged to home via ambulance, ph 14:34 Condition: good 14:34 Discharge instructions given to patient, Instructed on discharge instructions, follow up and referral plans. Demonstrated understanding of instructions, follow-up care, 14:46 Patient left the ED. mc5 Signatures: Dispatcher [employer] EDMS Jason Webb MD MD rn Hall, Patricia, RN RN ph Oliver, Kathy, RN RN Maureen Diop 5 Corrections: (The following items were deleted from the chart) 14:18 12:35 PMHx: back sx; ko1 ko1 14:18 12:35 PMHx: back sx; ko1 ko1 14:18 12:35 PMHx: back sx; ko1 ko1
--- NOTE | 2023-02-11 14:16 | EDPHYS ---
Physician Documentation [facility] Name: Jonnie De La Rosa Age: 52 yrs Sex: Male : 1970 Arrival Date: 02/11/2023 Time: 12:29 Bed 5 Private MD: ED Physician Jason Webb HPI: 02/11 14:10 This 52 yrs old Black Male presents to ER via EMS with complaints of pressure ulcer rn popped. 14:10 The patient presents with Blister popped. The complaints affect the left foot. Onset: rn The symptoms/episode began/occurred today. Modifying factors: The symptoms are alleviated by nothing, the symptoms are aggravated by nothing. Associated signs and symptoms: Pertinent negatives: fever. Severity of symptoms: At their worst the symptoms were mild, in the emergency department the symptoms have improved. EMS reports family called 911 after pressure ulcer of the left foot popped and bled. No longer bleeding. No fever. Patient reports has air mattress at home and family turns him once a day, his PCP Dr. Morse has been trying to organize alf admission, paperwork is submitted but patient is waiting to hear back. No other acute complaints.. Historical: - Allergies: 12:35 shellfish derived; ko1 - Home Meds: 12:35 Amitriptyline Oral once daily [Active]; atorvastatin 20 mg Oral tab 1 tab once daily ko1 [Active]; gabapentin 800 mg Oral tab 1 tab 4 times a day [Active]; levemir 40 units BID 40 40 unit twice a day [Active]; metoprolol tartrate 37.5 mg Oral tab 1 tab once daily [Active]; - PMHx: 12:35 Diabetes - IDDM; neuropathy; stroke; left sided deficit (2019); Hypertension; ko1 - PSHx: 12:35 back surgery; neck surgery; Umbilical hernia; ko1 - Immunization history:: Adult Immunizations unknown. - Social history:: Smoking status: Patient denies any tobacco usage or history of. - Family history:: not pertinent. - Hospitalizations: : No recent hospitalization is reported. ROS: 14:10 Constitutional: Negative for fever, chills, and weight loss, Cardiovascular: Negative rn for chest pain, palpitations, and edema, Respiratory: Negative for shortness of breath, cough, wheezing, and pleuritic chest pain, Abdomen/GI: Negative for abdominal pain, nausea, vomiting, diarrhea, and constipation, Skin: Positive for pressure wound of left foot which unroofed Exam: 14:10 Constitutional: This is a well developed, well nourished patient who is awake, alert, rn and in no acute distress. Cardiovascular: Regular rate and rhythm. No pulse deficits. Respiratory: No increased work of breathing, no retractions or nasal flaring. Abdomen/GI: Soft, non-tender MS/ Extremity: Pulses equal, no cyanosis. Multiple pressure ulcerations and blisters involving the left foot, left heel blister is now unroofed, no purulence or foul smell. No foreign body. No active bleeding. Vital Signs: 12:35 BP 114 / 75; Pulse 86; Resp 15; Temp 98.8(O); Pulse Ox 98% ; ko1 14:23 BP 104 / 59; Pulse 87; Resp 19; Pulse Ox 98% ; ko1 MDM: 12:34 Patient medically screened. rn 14:10 Differential diagnosis: Unroofed blister, pressure ulcer, hyperglycemia, neuropathy. rn Data reviewed: vital signs, nurses notes, lab test result(s), radiologic studies, plain films, and as a result, I will discharge patient. Counseling: I had a detailed discussion with the patient and/or guardian regarding the historical points, exam findings, and any diagnostic results supporting the discharge/admit diagnosis, lab results, radiology results, the need for outpatient follow up, to return to the emergency department if symptoms worsen or persist or if there are any questions or concerns that arise at home. Special discussion: I discussed with the patient/guardian in detail that at this point there is no indication for admission to the hospital. It is understood, however, that if the symptoms persist or worsen the patient needs to return immediately for re-evaluation. ED course: No acute findings and blood work. Patient with stroke and left-sided hemiparesis, family is doing a good job taking care of him but recently has developed some pressure ulcerations and 1 unroofed today. No evidence of infection. No evidence of osteomyelitis. Normal glucose. Stable vital signs. No indication for emergent admission at this time. PCP is already organizing alf admission.. 02/11 12:35 Order name: CBC with Diff; Complete Time: 13:56 rn 02/11 12:35 Order name: Basic Metabolic Panel; Complete Time: 13:56 rn 02/11 12:35 Order name: Protime (+inr); Complete Time: 13:56 rn 02/11 12:35 Order name: Ptt, Activated; Complete Time: 13:56 rn 02/11 12:35 Order name: XRAY Foot LEFT 3 View; Complete Time: 13:56 rn 02/11 12:35 Order name: IV Start; Complete Time: 13:37 rn 02/11 12:35 Order name: Glucose Level; Complete Time: 13:37 rn Administered Medications: No medications were administered Disposition Summary: 02/11/23 14:15 Discharge Ordered Notes: Location: Home rn Problem: an ongoing problem rn Symptoms: have improved rn Condition: Stable rn Diagnosis - Pressure ulcers of left foot rn Followup: rn - With: Gonzalez Morse MD - When: As needed - Reason: Recheck today's complaints, Re-evaluation by your physician Discharge Instructions: - Discharge Summary Sheet rn - Wound Care, Adult rn Forms: - Medication Reconciliation Form rn - Thank You Letter rn - Antibiotic registered nurse maternal child - Prescription Opioid Use rn - Patient Portal Instructions rn - Leadership Thank You Letter rn Signatures: Dispatcher [employer] Jason Forrest MD MD rn Oliver, Kathy, RN RN ko1 Corrections: (The following items were deleted from the chart) 14:18 12:35 PMHx: back sx; ko1 ko1 14:18 12:35 PMHx: back sx; ko1 ko1 14:18 12:35 PMHx: back sx; ko1 ko1
[2023-02-11 14:56] VITALS: BP 104/59; TEMP 98.8; O2SAT 98
== END ==
LOC: ER 12:29
DX: L89.899 Pressure ulcer of other site, unspecified stage (principal); E11.9 Type 2 diabetes mellitus without complications; I10 Essential (primary) hypertension; Z91.013 Allergy to seafood
CPT/HCPCS: 36415; 80048; 85025; 85610; 85730; 99284